=== PATIENT | male | born 1945 | race Caucasian/White ===

== ENCOUNTER 2017-01-21 22:02 | Emergency (ER) | payer MEDICARE ==
[2017-01-21 22:46] LABS: BASOPHILS 0.1 % (0.0-2.0); EOSINOPHILS 1.4 % (0-7); HEMOGLOBIN 14.3 g/dL (13.5-17.5); IMMATURE GRANULOCYTES 0.2 % (0-5); LYMPHOCYTES 35.7 % (15-50); MCH 27.7 pg (26.0-34.0); MCHC 32.5 g/dL (31.0-37.0); MCV 85.1 fL (80.0-100.0); MEAN PLATELET VOLUME 11.1 fL (7.4-10.4); MONOCYTES 7.4 % (2-11); NEUTROPHILS 55.2 % (40-80); PLATELET COUNT 160 10x3/uL (130-400); RBC 5.17 10x6/uL (4.20-6.10); RDW 13.5 % (11.5-14.5); WBC 12.8 10x3/uL (4.8-10.8)
[2017-01-21 23:00] LABS: ALBUMIN 3.5 g/dL (3.4-5.0); ANION GAP 12.5 mmol/L (8-16); BILIRUBIN - TOTAL 0.76 mg/dL (0.2-1.3); CALCIUM 8.6 mg/dL (8.5-10.1); CARBON DIOXIDE 28.8 mmol/L (21.0-32.0); CREATININE - SERUM 1.5 mg/dL (0.6-1.3); POTASSIUM - SERUM 4.3 mmol/L (3.5-5.1); PROTEIN - SERUM 6.3 g/dL (6.4-8.2)
[2017-01-21 23:16] LABS: D-DIMER-QUANTITATIVE < 0.27 ug/mLFEU (0.20-0.54)
[2017-01-21 23:28] LABS: INR 2.41 (0.85-1.17); PROTIME 26.3 SECONDS (11.6-15.0)
[2017-01-21 23:30] LABS: APTT 34.3 SECONDS (22.8-39.4)
== END 2017-01-22 00:52 | disposition home or self-care (01) ==
LOC: D.ER 22:02
PROVIDERS: Family Medicine
DX: M71.22 Synovial cyst of popliteal space [Baker], left knee (principal); I10 Essential (primary) hypertension; E11.9 Type 2 diabetes mellitus without complications

== ENCOUNTER → 2017-03-05 11:15 | Outpatient (CLI) | payer MEDICARE | END | disposition home or self-care (01) | LOC: D.LAB 11:15 | PROVIDERS: Orthopaedic Surgery | DX: E11.9 Type 2 diabetes mellitus without complications (principal) ==

== ENCOUNTER 2017-08-14 08:30 | Inpatient (IN) | payer MEDICARE ==
[2017-08-21] MEDS ORDERED: LOSARTAN POTASS25 MG PO (12:03)
[2017-08-21] MEDS ORDERED: COUMADIN10 MG PO (12:03)
[2017-08-21] MEDS ORDERED: LOVASTATIN10 MG PO (12:04)
[2017-08-21] MEDS ORDERED: ZYRTEC10 MG PO (12:04)
[2017-08-21] MEDS ORDERED: PRANDIN2 MG PO (12:05)
[2017-08-21] MEDS ORDERED: PROSCAR5 MG PO (12:05)
[2017-08-21] MEDS ORDERED: TRESIBA FL100 UNIT/1 SC (12:07)
[2017-08-22 13:13] LABS: BASOPHILS 0.2 % (0-2); EOSINOPHILS 1.8 % (0-7); HEMATOCRIT 47.6 % (42.0-54.0); HEMOGLOBIN 16.2 g/dL (13.5-17.5); IMMATURE GRANULOCYTES 0.2 % (0-5); LYMPHOCYTES 51.4 % (15-50); MCH 28.9 pg (26.0-34.0); MCV 84.8 fL (80.0-100.0); MEAN PLATELET VOLUME 10.4 fL (7.4-10.4); NEUTROPHILS 41.4 % (40-80); PLATELET COUNT 160 10x3/uL (130-400); RBC 5.61 10x6/uL (4.20-6.10); RDW 13.3 % (11.5-14.5); WBC 12.9 10x3/uL (4.8-10.8)
[2017-08-22 13:20] LABS: ANION GAP 13.4 mmol/L (8-16); CALCIUM 8.8 mg/dL (8.5-10.1); CARBON DIOXIDE 24.9 mmol/L (21.0-32.0); CREATININE - SERUM 1.1 mg/dL (0.6-1.3); POTASSIUM - SERUM 4.3 mmol/L (3.5-5.1)
[2017-08-22 13:22] LABS: APTT 38.9 SECONDS (22.8-39.4); INR 2.68 (0.85-1.17); PROTIME 28.7 SECONDS (11.6-15.0)
[2017-08-22 14:03] LABS: APPEARANCE CLEAR (CLEAR); BILIRUBIN NEGATIVE (NEGATIVE); COLOR YELLOW (YELLOW); GLUCOSE NEGATIVE (NEGATIVE); KETONE NEGATIVE (NEGATIVE); NITRITE NEGATIVE (NEGATIVE); PROTEIN NEGATIVE (NEGATIVE); SPECIFIC GRAVITY 1.015 (1.005-1.020); UROBILINOGEN NORMAL (NORMAL)
--- NOTE | 2017-08-23 13:25 | NUR ---
PATIENT RECEIVED TO FLOOR FROM [facility] VIA WHEELCHAIR. ORIENTED TO ROOM. DENIES NEEDS. CALL LIGHT IN REACH. DENIES NEEDS.
[2017-08-23] MEDS ORDERED: COUMADIN5 MG PO (13:28)
[2017-08-23 14:21] VITALS: BP 124/72; BMI 34.5
--- NOTE | 2017-08-23 14:30 | NUR ---
22 GAUGE IV SITED TO RIGHT FOREARM X2 ATTEMPTS. FLUSHES EASY WITH BLOOD RETURN PRESENT. SECURED WITH TAPE AND TEGADERM. WELL TOLERATED.
[2017-08-23 16:05] LABS: HEMATOCRIT 48.3 % (42.0-54.0); HEMOGLOBIN 16.2 g/dL (13.5-17.5); MCH 28.9 pg (26.0-34.0); MCHC 33.5 g/dL (31.0-37.0); MCV 86.1 fL (80.0-100.0); MEAN PLATELET VOLUME 10.7 fL (7.4-10.4); RBC 5.61 10x6/uL (4.20-6.10); RDW 13.4 % (11.5-14.5); WBC 13.6 10x3/uL (4.8-10.8)
[2017-08-23 16:19] LABS: APTT 45.6 SECONDS (22.8-39.4); INR 3.05 (0.85-1.17); PROTIME 31.8 SECONDS (11.6-15.0)
--- NOTE | 2017-08-23 16:57 | NUR ---
SITTING UP IN CHAIR ALERT. NO SIGNS OF DISTRESS NOTED. ACCU CHECK 241. INSULIN PER SLIDING SCALE. HEPARIN DRIP INITIATED PER ORDER. VERIFIED WITH CATHIE GARCIA. DENIES NEEDS. CALL LIGHT IN REACH.
[2017-08-23 20:00] VITALS: BP 148/76
[2017-08-24] VITALS: BP 136/66
--- NOTE | 2017-08-24 00:13 | NUR ---
30 MINUTE HOLD ON HEPARIN DRIP COMPLETE, RESTARTED AT 12ML/HR.
[2017-08-24 04:00] VITALS: BP 128/61
[2017-08-24 05:51] LABS: HEMATOCRIT 46.6 % (42.0-54.0); HEMOGLOBIN 15.6 g/dL (13.5-17.5); MCH 28.3 pg (26.0-34.0); MCHC 33.5 g/dL (31.0-37.0); MCV 84.6 fL (80.0-100.0); MEAN PLATELET VOLUME 10.7 fL (7.4-10.4); PLATELET COUNT 149 10x3/uL (130-400); RBC 5.51 10x6/uL (4.20-6.10); RDW 13.3 % (11.5-14.5); WBC 12.2 10x3/uL (4.8-10.8)
[2017-08-24 06:23] LABS: HEMOGLOBIN A1C 7.6 % (4.8-6.0)
[2017-08-24 06:47] LABS: ALBUMIN 3.5 g/dL (3.4-5.0); ANION GAP 14.6 mmol/L (8-16); BILIRUBIN - TOTAL 0.67 mg/dL (0.2-1.3); CALCIUM 8.7 mg/dL (8.5-10.1); CARBON DIOXIDE 25.4 mmol/L (21.0-32.0); CREATININE - SERUM 1.2 mg/dL (0.6-1.3); PROTEIN - SERUM 6.1 g/dL (6.4-8.2)
[2017-08-24 06:48] LABS: BASOPHILS 1 % (0-2); EOSINOPHILS 2 % (0-7); LYMPHOCYTES 60 % (15-50); MONOCYTES 1 % (2-11); NEUTROPHILS 36 % (40-80); PLATELET ESTIMATE NORMAL
--- NOTE | 2017-08-24 06:56 | NUR ---
DELAYED HEPARIN FOR 30 MINUTES PER HEPARIN PROTOCOL.
--- NOTE | 2017-08-24 07:15 | NUR ---
PATIENT RECEIVED UP AMBULATING IN ROOM. NO SIGNS OF DISTRESS NOTED. DENIES NEEDS. SIDE RAILS UP X2. BED IN LOW POSITION. CALL LIGHT IN REACH.
[2017-08-24 08:20] VITALS: BP 116/73
--- NOTE | 2017-08-24 08:30 | NUR ---
PATIENT AMBULATING IN ROOM WITHOUT ASSIST. DENIES NEEDS. WILL CONTINUE TO MONITOR.
--- NOTE | 2017-08-24 10:18 | NUR ---
UP AMBULATING IN HALLWAY WITHOUT ASSIST. NO SIGNS OF DISTRESS NOTED.
--- NOTE | 2017-08-24 11:06 | NUR ---
SITTING UP IN CHAIR ALERT. ACCU CHECK 172. INSULIN PER SLIDING SCALE. AT BEDSIDE. DENIES NEEDS. CALL LIGHT IN REACH.
--- NOTE | 2017-08-24 14:00 | NUR ---
PTT RESULTED. NO CHANGE TO HEPARIN DRIP RATE PER PROTOCOL. AM PTT ORDERED FOR 08/25/17
--- NOTE | 2017-08-24 15:00 | NUR ---
PATIENT UP AMBULATING IN HALLWAY WITHOUT ASSIST. NO SIGNS OF DISTRESS NOTED. DENIES NEEDS.
[2017-08-24 16:01] VITALS: BP 103/62
--- NOTE | 2017-08-24 16:35 | NUR ---
ALERT IN BED. ACCU CHECK 184. INSULIN PER SLIDING SCALE. DENIES NEEDS. SIDE RAILS UP X2. BED IN LOW POSITION. CALL LIGHT IN REACH.
--- NOTE | 2017-08-24 19:15 | NUR ---
RECEIVED CARE FROM DAY NURSE. PT IN HIGH FOWLERS POSTION. REPORTS NO NEEDS. CALL LIGHT AT SIDE. IV INFUSING TO PATENT RIGHT FA.
[2017-08-24 20:00] VITALS: BP 134/68
[2017-08-25] VITALS (7 sets, daily range): BP systolic 111–136; BP diastolic 57–79
--- NOTE | 2017-08-25 00:14 | NUR ---
ASSESSED, PT IS ASLEEP WITH BIPAP IN PLACE AND GOOD RESPIRATIONS. NO DISTRESS NOTED. ROOM IS COOL, THE BED IS LOW, RAILS UP X'S 2 WITH THE CALL LIGHT AT HAND.
--- NOTE | 2017-08-25 01:31 | NUR ---
PT LYING IN BED WITH EYES CLOSED. RESP EVEN AND UNLABORED. HOME C-PAP IN USE. CALL LIGHT AT SIDE. WILL CONTINUE TO MONITOR.
[2017-08-25 04:49] LABS: BASOPHILS 0.1 % (0-2); EOSINOPHILS 3.2 % (0-7); HEMATOCRIT 43.7 % (42.0-54.0); HEMOGLOBIN 14.7 g/dL (13.5-17.5); IMMATURE GRANULOCYTES 0.1 % (0-5); LYMPHOCYTES 55.7 % (15-50); MCH 28.3 pg (26.0-34.0); MCHC 33.6 g/dL (31.0-37.0); MCV 84.2 fL (80.0-100.0); MEAN PLATELET VOLUME 10.5 fL (7.4-10.4); MONOCYTES 4.8 % (2-11); NEUTROPHILS 36.1 % (40-80); PLATELET COUNT 136 10x3/uL (130-400); RBC 5.19 10x6/uL (4.20-6.10); RDW 13.1 % (11.5-14.5); WBC 10.7 10x3/uL (4.8-10.8)
[2017-08-25 05:09] LABS: ALBUMIN 3.3 g/dL (3.4-5.0); ANION GAP 9.2 mmol/L (8-16); BILIRUBIN - TOTAL 0.8 mg/dL (0.2-1.3); CALCIUM 8.9 mg/dL (8.5-10.1); CARBON DIOXIDE 26.4 mmol/L (21.0-32.0); CREATININE - SERUM 1.2 mg/dL (0.6-1.3); POTASSIUM - SERUM 3.6 mmol/L (3.5-5.1); PROTEIN - SERUM 5.8 g/dL (6.4-8.2)
--- NOTE | 2017-08-25 12:40 | NUR ---
PATIENT SITTING UP IN CHAIR EATING AT THIS TIME. NO COMPLAINTS OR SIGNS OF DISTRESS. IV INTACT. CALL LIGHT WITHIN REACH.
[2017-08-26 00:28] LABS: HEMATOCRIT 43.9 % (42.0-54.0); HEMOGLOBIN 14.9 g/dL (13.5-17.5); MCH 28.7 pg (26.0-34.0); MCHC 33.9 g/dL (31.0-37.0); MCV 84.6 fL (80.0-100.0); MEAN PLATELET VOLUME 10.5 fL (7.4-10.4); RBC 5.19 10x6/uL (4.20-6.10); RDW 13.2 % (11.5-14.5)
--- NOTE | 2017-08-26 01:46 | NUR ---
PATIENT RESTING IN BED WITH EYES CLOSED AND NO VISIBLE SIGNS OF DISTRESS. BED IN LOWEST POSITION AND CALL LIGHT WITHIN REACH.
--- NOTE | 2017-08-26 03:42 | NUR ---
RESTING QUITLY WITH C-PAP IN PLACE. IV INFUSING PER ORDER. RESP EVEN AND UNLABORED. CALL LIGHT AT SIDE.
[2017-08-26 04:00] VITALS: BP 140/65
--- NOTE | 2017-08-26 07:30 | NUR ---
RECIEVED PT DURING WALKING ROUNDS. PT RESTING IN CHAIR WITH NO COMPLAINTS OF PAIN OR DISCOMFORT AT THIS TIME. ASSESSMENT DONE PER FLOWSHEET. BED IN LOW POSITION AND CALL LIGHT WITHIN REACH. WILL CONTINUE TO MONITOR.
[2017-08-26 07:33] LABS: BASOPHILS 0.2 % (0-2); EOSINOPHILS 2.9 % (0-7); HEMATOCRIT 46.4 % (42.0-54.0); HEMOGLOBIN 15.8 g/dL (13.5-17.5); IMMATURE GRANULOCYTES 0.3 % (0-5); LYMPHOCYTES 56.7 % (15-50); MCH 28.8 pg (26.0-34.0); MCHC 34.1 g/dL (31.0-37.0); MCV 84.5 fL (80.0-100.0); MEAN PLATELET VOLUME 10.8 fL (7.4-10.4); MONOCYTES 4.3 % (2-11); NEUTROPHILS 35.6 % (40-80); PLATELET COUNT 155 10x3/uL (130-400); RBC 5.49 10x6/uL (4.20-6.10); RDW 13.4 % (11.5-14.5); WBC 11.2 10x3/uL (4.8-10.8)
[2017-08-26 08:01] LABS: ALBUMIN 3.5 g/dL (3.4-5.0); ANION GAP 14.8 mmol/L (8-16); BILIRUBIN - TOTAL 0.87 mg/dL (0.2-1.3); CALCIUM 8.6 mg/dL (8.5-10.1); CARBON DIOXIDE 25.4 mmol/L (21.0-32.0); CREATININE - SERUM 1.2 mg/dL (0.6-1.3); POTASSIUM - SERUM 4.2 mmol/L (3.5-5.1); PROTEIN - SERUM 6.3 g/dL (6.4-8.2)
--- NOTE | 2017-08-26 08:50 | NUR ---
HEPARIN DRIP ADJUSTED PER PROTOCOL. DOCUMANETED IN FLOWSHEET. BED IN LOW POSITION AND CALL LIGHT WITHIN REACH. WILL CONTINUE TO MONITOR.
[2017-08-26 09:48] VITALS: BP 128/69
[2017-08-26 10:52] LABS: INR 1.28 (0.85-1.17); PROTIME 15.8 SECONDS (11.6-15.0)
[2017-08-26 12:05] VITALS: BP 124/72
--- NOTE | 2017-08-26 15:42 | NUR ---
HEPARIN DRIP ADJUSTED PER PROTOCOL. WITNESSED BY NEEMA HERNANDEZ RN.
--- NOTE | 2017-08-26 19:15 | NUR ---
RECEIVED CARE FROM DAY NURSE. PT IN HIGH FOWLERS POSITION. REPORTS NO NEEDS. CALL LIGHT AT SIDE. IV INFUSING HEPARIN PER ORDER.
[2017-08-26 21:22] VITALS: BP 107/52
[2017-08-27] VITALS: BP 104/63
--- NOTE | 2017-08-27 00:42 | NUR ---
PATIENT RESTING IN BED WITH NO VISIBLE SIGNS OF DISTRESS. BED IN LOWEST POSITION AND CALL LIGHT WITHIN REACH.
[2017-08-27 04:00] VITALS: BP 113/64
[2017-08-27 05:26] LABS: BASOPHILS 0.2 % (0-2); EOSINOPHILS 2.6 % (0-7); HEMOGLOBIN 15.8 g/dL (13.5-17.5); IMMATURE GRANULOCYTES 0.2 % (0-5); LYMPHOCYTES 53.1 % (15-50); MCH 28.3 pg (26.0-34.0); MCHC 32.9 g/dL (31.0-37.0); MONOCYTES 5.3 % (2-11); NEUTROPHILS 38.6 % (40-80); PLATELET COUNT 155 10x3/uL (130-400); RBC 5.58 10x6/uL (4.20-6.10); RDW 13.5 % (11.5-14.5); WBC 12.4 10x3/uL (4.8-10.8)
[2017-08-27 05:54] LABS: ALBUMIN 3.7 g/dL (3.4-5.0); ANION GAP 13.8 mmol/L (8-16); BILIRUBIN - TOTAL 1.07 mg/dL (0.2-1.3); CALCIUM 9.1 mg/dL (8.5-10.1); CARBON DIOXIDE 29.6 mmol/L (21.0-32.0); CREATININE - SERUM 1.2 mg/dL (0.6-1.3); POTASSIUM - SERUM 4.4 mmol/L (3.5-5.1); PROTEIN - SERUM 6.6 g/dL (6.4-8.2)
--- NOTE | 2017-08-27 05:59 | NUR ---
HEPARIN TURNED OFF FOR SURGERY.
--- NOTE | 2017-08-27 07:30 | NUR ---
RECIEVED PT DURING WALKING ROUNDS. PT RESTING IN BED WITH NO COMPLAINTS OF PAIN OR DISCOMFORT AT THIS TIME. ASSESSMENT DONE PER FLOWSHEET. BED IN LOW POSITION AND CALL LIGHT WITHIN REACH. WILL CONTINUE TO MONITOR.
--- NOTE | 2017-08-27 07:48 | NUR ---
PT TAKEN TO SURGERY AT THIS TIME.
[2017-08-27 08:21] VITALS: BP 111/62
--- NOTE | 2017-08-27 09:07 | NUR ---
CASE DID NOT START SCHEDULED TIME DUE TO SURGEON LATE ARRIVAL TO HOSPITAL. PRECEDING CASE STARTED 30 MINUTES LATE.
[2017-08-27 09:18] LABS: INR 1.13 (0.85-1.17); PROTIME 14.3 SECONDS (11.6-15.0)
--- NOTE | 2017-08-27 10:55 | NUR ---
ANESTHESIA PUT BLOCK IN PT AFTER PROCEDURE
--- NOTE | 2017-08-27 11:35 | NUR ---
RECIEVED PT BACK FROM SURGERY. POST-OP VITALS STARTED AT THIS TIME.
[2017-08-27 11:36] VITALS: BP 126/68
--- NOTE | 2017-08-27 12:15 | NUR ---
HEPARIN PROTOCOL STARTED BACK TO LEFT FOREARM IV. IV SITED BY CATHIE COUCH. RATE AT 12. STAT PTT ORDERED.
--- NOTE | 2017-08-27 12:54 | OP ---
PATIENT NAME: JORGE CHUNG JR MEDICAL RECORD: [id number] :46 LOCATION:[id number] ADMISSION DATE:08/23/17 SURGEON: SELENE HOLLIDAY MD DATE OF OPERATION: 08/27/2017 PREOPERATIVE DIAGNOSES: 1. Left knee arthritis, severe. 2. 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 3. History of chronic blood clots on Coumadin. POSTOPERATIVE DIAGNOSES: 1. Left knee arthritis, severe. 2. 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 3. History of chronic blood clots on Coumadin. PROCEDURE: Left total knee arthroplasty using David navigation due to the above deformity. OPERATIVE SUMMARY IN DETAIL: After obtaining the appropriate preoperative orthopedic surgery consent as well as anesthetic consultation, evaluation and clearance, the patient was brought to the operating room and placed on the operating table in supine position. After general laryngeal mask was administered, tourniquet was placed about the proximal aspect of the left lower extremity. Left lower extremity was then prepped and draped in routine sterile fashion. Leg was elevated, exsanguinated, and tourniquet was inflated to 350 mmHg. Routine midline incision was taken down. Paramedian arthrotomy was performed. Patella was everted, distal femur was exposed. At this point, the femoral and tibial arrays were put in standard fashion and then the knee was taken through range of motion to found the hip center, medial and lateral condyles, knee center, and knee axial alignment as well as the tibial spines, medial and lateral tibial plateaus, and the medial and lateral malleoli. After registration was complete, array guided cut block was placed on the distal femur and the appropriate adjustments were made to do a mechanical axis of 0 with approximately 8 mm resection using the [employer] navigation system. Having completed this, attention was turned to the tibia and again the tibial cutting guide was mounted with an array and after the appropriate adjustments were made for mechanical axis of 0 and a resection of approximately 7 mm, the tibial cut was made. At this point, the gap primary class teacher was then put into place to be sure that there was appropriate room and also to be sure that there was appropriate balancing. Next, sizes were taken. Distal femoral chamfer cuts were created. Trials were put in. There was a 6 distal femur, 9 polyethylene trial insert, and a 6 trial tibial baseplate. Final corrections were made and the knee was taken through a range of motion with the [employer] navigation system. Final distal femoral and proximal tibial preparations were made. The articular surface of the patella was resected for patellar resurfacing. Final patellar resurfacing holes were completed. At this point, the knee was irrigated in copious lavage fashion. Gap balancing was done in both flexion and extension. The final components were cemented into place. All excess cement was removed. The knee was taken through a range of motion and found to be stable in all planes. Minden pins for the arrays and the arrays were taken off. Wound was again copiously irrigated. The paramedian arthrotomy was closed with #2 Ethibond followed by #1 Vicryl, 2-0 Vicryl and skin silvino. Sterile dressings were applied. Tourniquet was deflated. The patient was awakened, taken to recovery in stable condition. All final needle and sponge counts were correct. OPERATIVE REPORT [id number] JORGE CHUNG TRANSINT:[id number] Voice Confirmation ID: [id number] DOCUMENT ID: [id number] SELENE HOLLIDAY MD at 1254 CC: [id number] DICTATION DATE: 08/27/17 1032 OFFSET PLATE PREPARATION SUPERVISOR: 08/27/17 1223 [facility] [address] [place] [address]
--- NOTE | 2017-08-27 13:50 | NUR ---
SPOKE WITH ROSEY ATWOOD AT THIS TIME, WAS INSTRUCTED TO START HEPARIN PROTOCOL OVER AT 1300 UNITS/HR. RATE CHANGED AT THIS TIME. PTT LAB ORDERED PER PROTOCOL.
[2017-08-27 20:00] VITALS: BP 126/61
[2017-08-28] VITALS: BP 121/59
--- NOTE | 2017-08-28 01:27 | NUR ---
RN NOTE: PT RESTING IN SEMI GIBSON'S POSITION WITH EYES CLOSED AND EASY RESPIRATIONS. IV IN RIGHT FA PATENT WITH 1/2 NS INFUSING AT 100 ML / HR. O2 IN USE VIA NC AT 2L. DRESSING ON LEFT KNEE CLEAN AND DRY. WILL CONTINUE TO MONITOR FOR NEEDS. CALL LIGHT WITHIN REACH.
[2017-08-28 04:00] VITALS: BP 124/57
[2017-08-28 05:44] LABS: BASOPHILS 0.1 % (0-2); EOSINOPHILS 0.3 % (0-7); HEMATOCRIT 41.9 % (42.0-54.0); HEMOGLOBIN 13.8 g/dL (13.5-17.5); IMMATURE GRANULOCYTES 0.2 % (0-5); LYMPHOCYTES 36.4 % (15-50); MCH 28.5 pg (26.0-34.0); MCHC 32.9 g/dL (31.0-37.0); MCV 86.6 fL (80.0-100.0); MEAN PLATELET VOLUME 11.2 fL (7.4-10.4); MONOCYTES 8.6 % (2-11); NEUTROPHILS 54.4 % (40-80); PLATELET COUNT 143 10x3/uL (130-400); RBC 4.84 10x6/uL (4.20-6.10); RDW 13.6 % (11.5-14.5)
[2017-08-28 05:45] LABS: INR 1.19 (0.85-1.17)
[2017-08-28 05:51] LABS: ALBUMIN 3.3 g/dL (3.4-5.0); ANION GAP 14.6 mmol/L (8-16); BILIRUBIN - TOTAL 1.5 mg/dL (0.2-1.3); CALCIUM 8.2 mg/dL (8.5-10.1); CARBON DIOXIDE 25.7 mmol/L (21.0-32.0); CREATININE - SERUM 1.3 mg/dL (0.6-1.3); POTASSIUM - SERUM 4.3 mmol/L (3.5-5.1)
[2017-08-28 05:59] LABS: WBC 16.5 10x3/uL (4.8-10.8)
--- NOTE | 2017-08-28 07:42 | NUR ---
AWAKE AND ALERT. ORIENTED X3. NO C/O AT THIS TIME. LUNGS ARE CLEAR BILATERALLY, NO COUGH NOTED. SLIGHTLY DIMINISHED IN LOWER LOBES. SKIN IS INTACT WITHOUT REDNESS EXCEPT INCISION TO LEFT KNEE WHICH HAS A DRY INTACT DRESSING IN PLACE. ON CPM AT THIS TIME. IV TO RIGHT AND LEFT FOREARMS PATENT WITHOUT REDNESS AT INSERTION SITE. DENIES NEEDS.
--- NOTE | 2017-08-28 08:00 | NUR ---
OF CPM NOW.
[2017-08-28 08:30] VITALS: BP 137/54
--- NOTE | 2017-08-28 10:22 | NUR ---
UP IN CHAIR AT BEDSIDE PER PT.
--- NOTE | 2017-08-28 11:08 | NUR ---
Patient Name: JORGE CHUNG Admission Status: Elective Accout number: [id number] Admission Date: 08-23-2017 : 1945 Admission Diagnosis:UNILATERAL PRIMARY OSTEOARTHRITIS, LEFT KNEE Attending: SELENE HOLLIDAY Current LOS: 5 Anticipated DC Date: Planned Disposition: Home with Home Health Primary Insurance: [facility] Discharge Planning Comments: CM met with patient and (Isrrael) to assess discharge planning needs. Patient plans to discharge home and do PT with [facility] at home. He states that his does not drive so his Brother will be the one to drive home. Patient uses a CPAP machine with [facility]. Patient will need a walker and a CPM prior to discharge. CM will assist with that along with setting the patient up with HH and PT. CM will continue to follow and assist with discharge planning needs. PCP: Lillian Christensen- [phone] Mill Feeder: Yane Kern * Is the patient Alert and Oriented? Yes 0 * How many steps to enter\exit or inside your home? 0 0 * PCP LILLIAN 0 * Pharmacy [facility] 0 * Preadmission Environment Home with Family 0 * ADLs Independent 0 * Equipment CPAP 0 * List name and contact numbers for known caregivers / representatives who currently or will assist patient after discharge: ISRRAEL () [phone] 0 * Community resources currently utilized None 0 * Additional services required to return to the preadmission environment? Yes 0 * Can the patient safely return to the preadmission environment? Yes 0 * Has this patient been hospitalized within the prior 30 days at any hospital? No 0 Grand Total: 0
[2017-08-28 11:39] VITALS: BP 121/64
--- NOTE | 2017-08-28 12:00 | NUR ---
FSBS 293. GIVEN 6 UNITS HUMALOG SUBQ PER SS. STILL UP IN CHAIR AT BEDSIDE.
--- NOTE | 2017-08-28 12:51 | NUR ---
REQUESTED AND GIVNE ONE PERCOCET PO FOR C/O LEFT KNEE PAIN LEVEL 6. WILL MONITOR. ASSISTED TO BED PER STAFF.
[2017-08-28 15:07] VITALS: BP 126/76
--- NOTE | 2017-08-28 17:00 | NUR ---
FSBS 242. GIVEN 4 UNITS HUMALOG SUBQ PER SS. SUPPER SERVED INROOM.
--- NOTE | 2017-08-28 18:06 | NUR ---
UP TO BR WITH RW AND MIN ASSIST OF ONE. NO BM PUT PASSED FLATUS. NO CHANGES NOTED. DENIES NEEDS.
[2017-08-28 20:00] VITALS: BP 132/60
--- NOTE | 2017-08-28 23:11 | NUR ---
PATIENT IS RESTING WELL IN BED, CPM TAKEN OFF REQUESTED BY PATIENT. CALL LIGHT IN REACH.
[2017-08-29] VITALS: BP 136/64
[2017-08-29 04:00] VITALS: BP 126/58
[2017-08-29 05:40] LABS: BASOPHILS 0.1 % (0-2); EOSINOPHILS 0.5 % (0-7); IMMATURE GRANULOCYTES 0.3 % (0-5); LYMPHOCYTES 40.5 % (15-50); MCH 28.8 pg (26.0-34.0); MCHC 33.5 g/dL (31.0-37.0); MCV 85.9 fL (80.0-100.0); MEAN PLATELET VOLUME 10.2 fL (7.4-10.4); MONOCYTES 7.7 % (2-11); NEUTROPHILS 50.9 % (40-80); PLATELET COUNT 144 10x3/uL (130-400); RDW 13.3 % (11.5-14.5); WBC 14.9 10x3/uL (4.8-10.8)
[2017-08-29 05:44] LABS: HEMATOCRIT 32.2 % (42.0-54.0); HEMOGLOBIN 10.8 g/dL (13.5-17.5); RBC 3.75 10x6/uL (4.20-6.10)
[2017-08-29 05:50] LABS: INR 1.53 (0.85-1.17); PROTIME 18.3 SECONDS (11.6-15.0)
[2017-08-29 05:57] LABS: ALBUMIN 2.8 g/dL (3.4-5.0); BILIRUBIN - TOTAL 1.2 mg/dL (0.2-1.3); CALCIUM 8.1 mg/dL (8.5-10.1); CREATININE - SERUM 1.3 mg/dL (0.6-1.3); PROTEIN - SERUM 5.7 g/dL (6.4-8.2)
--- NOTE | 2017-08-29 07:37 | NUR ---
AWAKE AND ALERT. ORIENTED X3. NO C/O AT THIS TIME. LUNGS ARE CLEAR BILATERALLY, NO COUGH NOTED. SKIN IS INTACT WITHOUT REDNESS EXCEPT INCISION TO LEFT KNEE WHICH HAS A DRY INTACT DRESSING IN PLACE. ON CPM AT THIS TIME. IV TO RIGHT FOREARM PATENT AND LEFT FOREARM PATNET WITHOUT REDNESS AT INSERTION SITE. CLEAR YELLOW URINE NOTED IN URINAL. DENIES NEEDS.
[2017-08-29 08:11] VITALS: BP 146/64
--- NOTE | 2017-08-29 10:00 | NUR ---
REQUESTED AND GIVNE ONE PERCOCET PO FOR C/O LEFT KNEE PAIN LEVEL 6. WILL MONITOR.
--- NOTE | 2017-08-29 12:00 | NUR ---
FSBS 319. GIVEN 12 UNITS HUMALOG SUBQ PER SS. LUNCH SERVED IN ROOM. UP TO BR WITH PT USING RW. NO BM JUST FLATUS.
[2017-08-29 12:35] VITALS: BP 129/58
--- NOTE | 2017-08-29 17:00 | NUR ---
FSBS 299. GIVEN 6 UNITS HUMALOG SUBQ PER SS.
[2017-08-29 17:27] VITALS: BP 130/60
--- NOTE | 2017-08-29 17:59 | NUR ---
REQUESTED AND GIVEN ONE PERCOCET PO FOR PAIN MANAGEMENT PRIOR TO CPM. PLACED AT THIS TIME.
--- NOTE | 2017-08-29 18:19 | NUR ---
ATE ALL OF SUPPER. NO CHANGES NOTED. DENIES NEEDS.
[2017-08-29 20:00] VITALS: BP 132/56
[2017-08-30] VITALS: BP 137/57
[2017-08-30 04:00] VITALS: BP 142/55
[2017-08-30 05:26] LABS: BASOPHILS 0.1 % (0-2); EOSINOPHILS 1.1 % (0-7); HEMATOCRIT 28.1 % (42.0-54.0); HEMOGLOBIN 9.4 g/dL (13.5-17.5); IMMATURE GRANULOCYTES 0.1 % (0-5); LYMPHOCYTES 45.2 % (15-50); MCH 28.7 pg (26.0-34.0); MCHC 33.5 g/dL (31.0-37.0); MCV 85.7 fL (80.0-100.0); MEAN PLATELET VOLUME 10.1 fL (7.4-10.4); NEUTROPHILS 46.5 % (40-80); PLATELET COUNT 151 10x3/uL (130-400); RBC 3.28 10x6/uL (4.20-6.10); RDW 13.4 % (11.5-14.5); WBC 13.6 10x3/uL (4.8-10.8)
[2017-08-30 05:47] LABS: INR 1.4 (0.85-1.17)
[2017-08-30 05:48] LABS: ALBUMIN 2.6 g/dL (3.4-5.0); ANION GAP 11.6 mmol/L (8-16); APTT 72.8 SECONDS (22.8-39.4); BILIRUBIN - TOTAL 0.9 mg/dL (0.2-1.3); CALCIUM 8.3 mg/dL (8.5-10.1); CREATININE - SERUM 1.3 mg/dL (0.6-1.3); POTASSIUM - SERUM 3.6 mmol/L (3.5-5.1)
--- NOTE | 2017-08-30 05:54 | NUR ---
RESTING IN BED WITH EYES CLOSED. NO S/S OF DISTRESS OBSERVED. IV TO RIGHT FOREARM WITH 1/2 NS RUNNING. POST LEFT YKR. CPAP IN PLACE AND FUNCTIONING PROPERLY. O2@2 LITERS PER N/C. RESP. EVEN AND UNLABORED.CALL LIGHT AND OVERBED TABLE IN REACH.
--- NOTE | 2017-08-30 07:15 | NUR ---
RECIEVED REPORT ON PATIENT, PATIENT IS ALERT AND ORIENTED AT THIS TIME. PATIENT IS ST ON MONITOR WITH A RATE OF 118. PATIENT HAS A R FA IV WITH 1/2 NS INFUSING AT 100ML/HR AND A L FA IV INFUSING WITH A HEPARIN DRIP AT 10ML/HR. PATIENT HAS L KNEE WRAPPED IN AN WILLIAM WRAP, AND IS ON CPM AT THIS TIME. SCD ON R LEG. PATIENT DENIES ANY NEEDS AT THIS TIME. WILL CONT TO MONITOR PATIENT. CPOC
[2017-08-30 08:55] VITALS: BP 134/65
--- NOTE | 2017-08-30 09:30 | NUR ---
MORNING MEDICATION GIVEN, PATIENT DENIES ANY NEEDS. BED LOW AND LOCKED. CPOC
[2017-08-30 11:29] VITALS: BP 116/46
--- NOTE | 2017-08-30 11:45 | NUR ---
PATIENT FSBS 252, 10 UNITS OF HUMALOG GIVEN. CPOC
--- NOTE | 2017-08-30 12:00 | NUR ---
PATIENT SITTING UP IN BED EATING LUNCH, DENIES ANY NEEDS AT THIS TIME. CPOC
--- NOTE | 2017-08-30 12:57 | NUR ---
NUTRITION F/U PT UP IN [place]RE[place] WITH PHYSICAL THERAPY. 100% INTAKE LUNCH. CONTINUES TO BE ASSESSED AT LOW NUTRITIONAL RISK. RD FOLLOWING
--- NOTE | 2017-08-30 12:57 | NUR ---
PATIENT AMBULATING [place] WITH PT. CPOC
--- NOTE | 2017-08-30 15:00 | NUR ---
PATIENT UP TO BATHROOM, HAVING BM. CALL LIGHT IN REACH. CPOC
--- NOTE | 2017-08-30 16:33 | NUR ---
Rehab Note- Acute Rehab Prescreen order received. The patient had a left TKA. He does not have an acute inpatient rehab diagnosis at this time. Plans to discharge home with . Will follow at this time. Thank you for this referral! Diamond Maldonado RN Clinical Liaison, [facility] Rehab
[2017-08-30 19:49] VITALS: BP 143/71
[2017-08-31] VITALS: BP 144/77
--- NOTE | 2017-08-31 01:27 | NUR ---
PT C/O BEING "COLD & SHAKY" HE SAID HIS BLOOD SUGAR MUST BE LOW. FSBS 131. GAVE OLGA CRACKERS WITH PEANUT BUTTER AND MILK. PT STATES HE FEELS BETTER. HE ALSO C/O LEFT KNEE PAIN 07/29, GAVE PERCOCET-10 1 TAB. NO OTHER NEEDS. WILL REASSESS AND CONTINUE TO MONITOR.
[2017-08-31 04:00] VITALS: BP 119/68
[2017-08-31 06:09] LABS: BASOPHILS 0.1 % (0-2); EOSINOPHILS 1.4 % (0-7); HEMATOCRIT 26.4 % (42.0-54.0); HEMOGLOBIN 8.7 g/dL (13.5-17.5); IMMATURE GRANULOCYTES 0.2 % (0-5); LYMPHOCYTES 49.3 % (15-50); MCH 28.4 pg (26.0-34.0); MCV 86.3 fL (80.0-100.0); MEAN PLATELET VOLUME 10.2 fL (7.4-10.4); MONOCYTES 6.9 % (2-11); NEUTROPHILS 42.1 % (40-80); RBC 3.06 10x6/uL (4.20-6.10); RDW 13.4 % (11.5-14.5); WBC 11.8 10x3/uL (4.8-10.8)
[2017-08-31 06:10] LABS: PLATELET COUNT 183 10x3/uL (130-400)
[2017-08-31 06:19] LABS: APTT 51.7 SECONDS (22.8-39.4); INR 1.27 (0.85-1.17); PROTIME 15.8 SECONDS (11.6-15.0)
[2017-08-31 06:32] LABS: ALBUMIN 2.4 g/dL (3.4-5.0); ANION GAP 10.6 mmol/L (8-16); BILIRUBIN - TOTAL 0.74 mg/dL (0.2-1.3); CALCIUM 8.6 mg/dL (8.5-10.1); CARBON DIOXIDE 27.9 mmol/L (21.0-32.0); CREATININE - SERUM 1.3 mg/dL (0.6-1.3); POTASSIUM - SERUM 3.5 mmol/L (3.5-5.1); PROTEIN - SERUM 6.1 g/dL (6.4-8.2)
--- NOTE | 2017-08-31 07:56 | NUR ---
AWAKE AND ALERT. ORIENTED X3. NO C/O AT THIS TIME. LUNGS ARE CLEAR BILATERALLY, OCCASSIONAL DRY COUGH NOTED. SKIN IS INTACT WITHOUT REDNESS EXCEPT INCISION TO LEFT KNEE, WHICH HAS A DRY INTACT DRESSING IN PLACE AND SOME WHAT LOOKS LIKE TAPE BLISTERS TO LEFT LEG ABOVE DRESSING AREA. SL TO RIGHT FOREARM AND IV TO LEFT WRIST PATENT WITHOUT REDNESS AT INSERTION SITE. DENIES NEEDS.
[2017-08-31 08:15] VITALS: BP 136/58
--- NOTE | 2017-08-31 10:00 | NUR ---
UP IN CHAIR AT BEDSIDE PER PT.
--- NOTE | 2017-08-31 12:15 | NUR ---
REQUESTED AND GIVNE ONE PERCOCET PO FOR C/O LEFT KNEE PAIN LEVEL 8. WILL MONITOR. REPORTS GOOD BM THIS AM.
[2017-08-31 12:33] VITALS: BP 126/53
[2017-08-31 16:17] VITALS: BP 123/50
--- NOTE | 2017-08-31 17:00 | NUR ---
FSBS 221. GIVEN 8 UNITS HUMALOG SUBQ FOR SAME. SUPPER SERVED IN ROOM. REQUESTED AND GIVNE ONE PERCOCET PO FOR C/O LFET KNEE PAIN LEVEL 7. WILL MONITOR.
--- NOTE | 2017-08-31 18:00 | NUR ---
UP TO BR WITH ONE PERSON MIN ASSIST. VOIDED WITHOUT DIFFICULTY. CPM TO LEFT KNEE AT THIS TIME. REPORTS PAIN IMPROVED. DENIES NEEDS. NO CHANGES NOTED.
[2017-08-31 20:00] VITALS: BP 130/62
[2017-09-01] VITALS: BP 130/58
[2017-09-01 00:51] LABS: HEMATOCRIT 26.7 % (42.0-54.0); HEMOGLOBIN 8.8 g/dL (13.5-17.5); MCH 28.2 pg (26.0-34.0); MCV 85.6 fL (80.0-100.0); MEAN PLATELET VOLUME 9.3 fL (7.4-10.4); RBC 3.12 10x6/uL (4.20-6.10); RDW 13.2 % (11.5-14.5); WBC 12.1 10x3/uL (4.8-10.8)
[2017-09-01 04:00] VITALS: BP 125/64
[2017-09-01 05:47] LABS: BASOPHILS 0.2 % (0-2); EOSINOPHILS 2.6 % (0-7); HEMATOCRIT 26.1 % (42.0-54.0); HEMOGLOBIN 8.5 g/dL (13.5-17.5); IMMATURE GRANULOCYTES 0.3 % (0-5); LYMPHOCYTES 53.6 % (15-50); MCH 27.9 pg (26.0-34.0); MCHC 32.6 g/dL (31.0-37.0); MCV 85.6 fL (80.0-100.0); MEAN PLATELET VOLUME 9.6 fL (7.4-10.4); MONOCYTES 7.1 % (2-11); NEUTROPHILS 36.2 % (40-80); PLATELET COUNT 214 10x3/uL (130-400); RBC 3.05 10x6/uL (4.20-6.10); RDW 13.2 % (11.5-14.5); WBC 11.7 10x3/uL (4.8-10.8)
[2017-09-01 06:06] LABS: INR 1.6 (0.85-1.17)
[2017-09-01 06:09] LABS: APTT 91.2 SECONDS (22.8-39.4)
[2017-09-01 06:17] LABS: ALBUMIN 2.5 g/dL (3.4-5.0); ANION GAP 10.6 mmol/L (8-16); BILIRUBIN - TOTAL 0.9 mg/dL (0.2-1.3); CALCIUM 8.8 mg/dL (8.5-10.1); CARBON DIOXIDE 28.2 mmol/L (21.0-32.0); CREATININE - SERUM 1.3 mg/dL (0.6-1.3); POTASSIUM - SERUM 3.8 mmol/L (3.5-5.1)
[2017-09-01 07:58] VITALS: BP 120/55
--- NOTE | 2017-09-01 08:00 | NUR ---
ASSESSMENT PER FLOW SHEET.ASSISTED UP TO BATHROOM AND TO CHAIR WITH WALKER.PT WITHOUT DISTRESS,BUT STATES PAIN 5/10 TO POSTERIOR THIGH. CPM OFF AT 0815. CALL LIGHT IN REACH
[2017-09-01 12:43] VITALS: BP 114/55
--- NOTE | 2017-09-01 15:15 | NUR ---
REHAB PRESCREEN: THE PATIENT HAS [employer] INSURANCE AND WILL NEED PRIOR AUTHORIZATION FOR APPROVAL FOR REHAB, WAITING ON THE RESULTS OF THAT APPROVAL BEFORE ABLE TO APROVE THE EVAL. WILL FOLLOW UP ON SUNDAY. THANK YOU AGAIN FOR THIS EVAL. GISSELL CHAUDHRY CLINICAL LIASION
[2017-09-01 15:49] VITALS: BP 144/54
--- NOTE | 2017-09-01 18:32 | NUR ---
REMAINS WITHOUT DISTRESS,WITHOUT CHANGE.CONT PLAN OF CARE
--- NOTE | 2017-09-01 18:38 | NUR ---
PT REFUSES CPM. HE STATES PT LEFT HIM UP TO LONG AND WILL NOT DO IT.
[2017-09-01 20:00] VITALS: BP 119/65
--- NOTE | 2017-09-01 20:00 | NUR ---
PT C/O LEFT KNEE PAIN 04/28. GAVE PERCOCET AND SCHEDULED MEDS. FSBS 211 - TREATED WITH S/S INSULIN GAVE SCHEDULED LANTUS. GAVE SNACK OF OLGA CRACKERS AND PEANUT BUTTER. ASSESSMENT COMPLETE PER FLOWSHEET.
--- NOTE | 2017-09-01 20:03 | NUR ---
LATE ENTRY- 1330 REHAB PRESCREENING RE-EVAL REQUESTED. PATIENT HAS A MEDICARE REPLACEMENT PROVIDER THEREFORE WILL NEED PREAUTH PRIOR TO EVALUATION. REHAB SCREENER TO FOLLOW UP ON SUNDAY.
[2017-09-02] VITALS: BP 122/69
[2017-09-02 04:00] VITALS: BP 135/59
[2017-09-02 05:25] LABS: BASOPHILS 0.1 % (0-2); EOSINOPHILS 2.3 % (0-7); HEMATOCRIT 28.4 % (42.0-54.0); HEMOGLOBIN 9.1 g/dL (13.5-17.5); IMMATURE GRANULOCYTES 0.6 % (0-5); LYMPHOCYTES 52.8 % (15-50); MCH 27.7 pg (26.0-34.0); MCV 86.3 fL (80.0-100.0); MEAN PLATELET VOLUME 9.2 fL (7.4-10.4); MONOCYTES 6.8 % (2-11); NEUTROPHILS 37.4 % (40-80); PLATELET COUNT 243 10x3/uL (130-400); RBC 3.29 10x6/uL (4.20-6.10); RDW 13.3 % (11.5-14.5); WBC 14.1 10x3/uL (4.8-10.8)
[2017-09-02 05:47] LABS: INR 1.66 (0.85-1.17); PROTIME 19.6 SECONDS (11.6-15.0)
[2017-09-02 05:49] LABS: APTT 117.7 SECONDS (22.8-39.4)
[2017-09-02 05:52] LABS: ALBUMIN 2.7 g/dL (3.4-5.0); ANION GAP 12.4 mmol/L (8-16); CALCIUM 9.3 mg/dL (8.5-10.1); CARBON DIOXIDE 27.7 mmol/L (21.0-32.0); CREATININE - SERUM 1.3 mg/dL (0.6-1.3); POTASSIUM - SERUM 4.1 mmol/L (3.5-5.1); PROTEIN - SERUM 6.5 g/dL (6.4-8.2)
[2017-09-02 08:30] VITALS: BP 129/67
--- NOTE | 2017-09-02 09:05 | NUR ---
REPORT RECEIVED FROM CATHIE GARCIA.
--- NOTE | 2017-09-02 11:30 | NUR ---
BLOOD SUGAR 223 SO COVERAGE REQUIRED. PERCOCET PO. CALL LIGHT IN REACH.
--- NOTE | 2017-09-02 12:55 | NUR ---
EATING LUNCH AT THIS TIME. NO DISTRESS NOTED. AT BEDSIDE. CALL LIGHT IN REACH.
--- NOTE | 2017-09-02 14:31 | NUR ---
HEPARIN DRIP CHANGED TO RIGHT FOREARM PER PATIENT'S REQUEST.
[2017-09-02 16:08] VITALS: BP 126/68
--- NOTE | 2017-09-02 16:30 | NUR ---
FAMILY IN ROOM. NO NEEDS VOICED AT THIS TIME.
--- NOTE | 2017-09-02 18:52 | NUR ---
CPM ON. PERCOCET AND PRANDIN PO. NO OTHER CHANGES IN INITIAL ASSESSMENT. CALL LIGHT IN REACH. WILL CONTINUE WITH PLAN OF CARE.
[2017-09-02 20:34] VITALS: BP 113/56
[2017-09-03] VITALS: BP 127/63
[2017-09-03 04:00] VITALS: BP 125/64
[2017-09-03 05:34] LABS: HEMOGLOBIN 9.9 g/dL (13.5-17.5); MCH 27.7 pg (26.0-34.0); MCHC 31.9 g/dL (31.0-37.0); MCV 86.8 fL (80.0-100.0); MEAN PLATELET VOLUME 9.1 fL (7.4-10.4); RBC 3.57 10x6/uL (4.20-6.10); RDW 13.5 % (11.5-14.5); WBC 14.4 10x3/uL (4.8-10.8)
[2017-09-03 06:56] LABS: INR 2.56 (0.85-1.17); PROTIME 27.6 SECONDS (11.6-15.0)
--- NOTE | 2017-09-03 07:49 | NUR ---
AWAKE AND ALERT. ORIENTED X3. NO C/O AT THIS TIME. LUNGS ARE CLEAR BILATERLALLY, NO COUGH NOTED. USED IS AT THIS TIME. SKIN IS INTACT WITHOUT REDNESS EXCEPT INCISION TO LEFT KNEE WHICH HAS A DRY INTACT DRESSING IN PLACE. SL TO LEFT HAND PATENT IV TO RIGHT FOREARM PATENT WITHOUT REDNESS AT ISNERTION SITE. DENIES NEEDS. CPM OFF AT THIS TIME.
[2017-09-03 08:15] VITALS: BP 128/68
[2017-09-03] MEDS ORDERED: PERCOCET 10/3251 TA1 PO (08:35)
--- NOTE | 2017-09-03 09:45 | NUR ---
REQUESTED AND GIVEN ONE PERCOCET PO FOR C/O LEFT KNEE PAIN LEVEL 8. WILL MONITOR.
[2017-09-03 10:13] LABS: ALBUMIN 2.7 g/dL (3.4-5.0); ANION GAP 11.9 mmol/L (8-16); BILIRUBIN - TOTAL 0.93 mg/dL (0.2-1.3); CALCIUM 9.3 mg/dL (8.5-10.1); CARBON DIOXIDE 29.6 mmol/L (21.0-32.0); CREATININE - SERUM 1.4 mg/dL (0.6-1.3); POTASSIUM - SERUM 4.5 mmol/L (3.5-5.1); PROTEIN - SERUM 6.9 g/dL (6.4-8.2)
--- NOTE | 2017-09-03 10:47 | NUR ---
Rehab Note- Contacted by Andrae with [facility] to fax clinicals for review for acute rehab stay. Faxed at this time. Will await determination from [facility] for possible acute rehab stay. Thank you for this referral! Diamond Maldonado RN Clinical Liaison, [facility] Rehab
--- NOTE | 2017-09-03 12:00 | NUR ---
FSBS 220. GIVEN 8 UNITS HUMALOG SUBQ PER SS. LUNCH SERVED IN ROOM.M
[2017-09-03 12:09] VITALS: BP 124/60
--- NOTE | 2017-09-03 14:02 | NUR ---
Rehab Note- received call from Andrae with [facility], informed the patient was denied an acute inpatient rehab stay, that the patient can receive care at a lower level as in a SNF. Spoke to Abbey CM. A peer to peer can be set up by calling [phone] before 09/04/17 at 1500. Reference #[id number]. Thank you for this referral! Diamond Maldonado RN Clinical Liaison, [facility] Rehab
--- NOTE | 2017-09-03 15:14 | NUR ---
patient being discharged today to the [facility] via their van to a skilled bed I called patients daughter Ann and let her know. CM will continue to follow and assist as needed
--- NOTE | 2017-09-03 15:25 | NUR ---
REPORT CALLED TO RODRICK NUNO LPN AT THE [facility]. ALL QUESTIONS ANSWERED. DENIES NEEDS.
--- NOTE | 2017-09-03 17:27 | NUR ---
DISCHARGED TO [facility]. DISCHARGE PAPERWORK GIVEN BOTH VERBALLY AND WRITTEN. ALL QUESTIONS ANSWERED. PATIENT VERBALIZED UNDERSTANDING OF SAME. PICKED UP BY THEIR TRANSPORTER. LEFT VIA WC WITH ALL BELONGINGS.
== END 2017-09-03 17:29 | DRG 470 ==
LOC: D.MS 08-23 13:02 → D.SDCHOLD 08-27 08:00 → D.MS 09-03 17:29
PROVIDERS: Anesthesiology; Family Medicine; ADMIT Orthopaedic Surgery
PROC: 0SRD0J9 Replacement of Left Knee Joint with Synthetic Substitute, Cemented, Open Approach (ICD-10-PCS; principal; 2017-08-27 08:00)
DX: M17.12 Unilateral primary osteoarthritis, left knee (principal); E11.65 Type 2 diabetes mellitus with hyperglycemia; Z79.4 Long term (current) use of insulin; Z86.718 Personal history of other venous thrombosis and embolism; Z79.01 Long term (current) use of anticoagulants; G47.33 Obstructive sleep apnea (adult) (pediatric)

== ENCOUNTER → 2017-09-21 14:40 | Outpatient (CLI) | payer MEDICARE ==
[2017-08-23 14:21] VITALS: BMI 34.5
[~2017-09-21 14:40] MED LIST: COUMADIN10 MG PO; COUMADIN5 MG PO; LOSARTAN POTASS25 MG PO; LOVASTATIN10 MG PO; PERCOCET 10/3251 TA1 PO; PRANDIN2 MG PO; PROSCAR5 MG PO; TRESIBA FL100 UNIT/1 SC; ZYRTEC10 MG PO
[2017-09-21 15:51] LABS: INR 2.81 (0.85-1.17); PROTIME 29.8 SECONDS (11.6-15.0)
== END | disposition home or self-care (01) ==
LOC: D.LABREF 14:40
PROVIDERS: Orthopaedic Surgery
DX: Z51.81 Encounter for therapeutic drug level monitoring (principal); Z79.01 Long term (current) use of anticoagulants; E11.9 Type 2 diabetes mellitus without complications

== ENCOUNTER → 2017-09-24 16:02 | Outpatient (CLI) | payer MEDICARE ==
[2017-09-24 16:27] LABS: INR 2.87 (0.85-1.17); PROTIME 30.3 SECONDS (11.6-15.0)
== END | disposition home or self-care (01) ==
LOC: D.LABREF 16:02
PROVIDERS: Orthopaedic Surgery
DX: Z51.81 Encounter for therapeutic drug level monitoring (principal); Z79.01 Long term (current) use of anticoagulants; R73.09 Other abnormal glucose

== ENCOUNTER → 2017-09-27 14:06 | Outpatient (CLI) | payer MEDICARE ==
[2017-09-27 15:08] LABS: INR 2.94 (0.85-1.17); PROTIME 30.9 SECONDS (11.6-15.0)
== END | disposition home or self-care (01) ==
LOC: D.LABREF 14:06
PROVIDERS: Orthopaedic Surgery
DX: Z51.81 Encounter for therapeutic drug level monitoring (principal); Z79.01 Long term (current) use of anticoagulants

== ENCOUNTER → 2017-10-01 15:16 | Outpatient (CLI) | payer MEDICARE ==
[2017-10-01 15:59] LABS: INR 3.08 (0.85-1.17); PROTIME 32.1 SECONDS (11.6-15.0)
== END | disposition home or self-care (01) ==
LOC: D.LABREF 15:16
PROVIDERS: Orthopaedic Surgery
DX: Z51.81 Encounter for therapeutic drug level monitoring (principal); Z79.01 Long term (current) use of anticoagulants; E11.9 Type 2 diabetes mellitus without complications

== ENCOUNTER → 2017-10-04 16:36 | Outpatient (CLI) | payer MEDICARE ==
[2017-10-04 17:11] LABS: INR 3.07 (0.85-1.17)
== END | disposition home or self-care (01) ==
LOC: D.LABREF 16:36
PROVIDERS: Orthopaedic Surgery
DX: Z51.81 Encounter for therapeutic drug level monitoring (principal); Z79.01 Long term (current) use of anticoagulants

== ENCOUNTER → 2017-10-10 11:39 | Outpatient (CLI) | payer MEDICARE ==
[2017-10-10 13:43] LABS: INR 3.34 (0.85-1.17); PROTIME 34.2 SECONDS (11.6-15.0)
== END | disposition home or self-care (01) ==
LOC: D.LABREF 11:39
PROVIDERS: Orthopaedic Surgery
DX: Z51.81 Encounter for therapeutic drug level monitoring (principal); Z79.01 Long term (current) use of anticoagulants; E11.9 Type 2 diabetes mellitus without complications

== ENCOUNTER → 2017-10-15 15:33 | Outpatient (CLI) | payer MEDICARE ==
[2017-10-15 19:52] LABS: INR 2.71 (0.85-1.17)
== END | disposition home or self-care (01) ==
LOC: D.LABREF 15:33
PROVIDERS: Orthopaedic Surgery
DX: Z51.81 Encounter for therapeutic drug level monitoring (principal); Z79.01 Long term (current) use of anticoagulants

== ENCOUNTER → 2017-10-19 12:44 | Outpatient (CLI) | payer MEDICARE ==
[2017-10-19 14:35] LABS: INR 3.08 (0.85-1.17)
== END | disposition home or self-care (01) ==
LOC: D.LABREF 12:44
PROVIDERS: Orthopaedic Surgery
DX: Z51.81 Encounter for therapeutic drug level monitoring (principal); Z79.01 Long term (current) use of anticoagulants

== ENCOUNTER → 2017-10-22 17:45 | Outpatient (CLI) | payer MEDICARE ==
[2017-10-22 18:09] LABS: INR 2.48 (0.85-1.17); PROTIME 26.2 SECONDS (11.6-15.0)
== END | disposition home or self-care (01) ==
LOC: D.LABREF 17:45
PROVIDERS: Orthopaedic Surgery
DX: Z51.81 Encounter for therapeutic drug level monitoring (principal); Z79.01 Long term (current) use of anticoagulants

== ENCOUNTER → 2017-10-25 14:11 | Outpatient (CLI) | payer MEDICARE ==
[2017-10-25 14:58] LABS: INR 2.44 (0.85-1.17); PROTIME 25.8 SECONDS (11.6-15.0)
== END | disposition home or self-care (01) ==
LOC: D.LABREF 14:11
PROVIDERS: Orthopaedic Surgery
DX: Z51.81 Encounter for therapeutic drug level monitoring (principal); Z79.01 Long term (current) use of anticoagulants

== ENCOUNTER → 2017-10-29 15:01 | Outpatient (CLI) | payer MEDICARE ==
[2017-10-29 16:20] LABS: INR 2.25 (0.85-1.17); PROTIME 24.2 SECONDS (11.6-15.0)
== END | disposition home or self-care (01) ==
LOC: D.LABREF 15:01
PROVIDERS: Orthopaedic Surgery
DX: Z51.81 Encounter for therapeutic drug level monitoring (principal); Z79.01 Long term (current) use of anticoagulants; E11.9 Type 2 diabetes mellitus without complications

== ENCOUNTER → 2017-11-01 15:19 | Outpatient (CLI) | payer MEDICARE ==
[2017-11-01 16:00] LABS: INR 1.75 (0.85-1.17); PROTIME 19.9 SECONDS (11.6-15.0)
== END | disposition home or self-care (01) ==
LOC: D.LABREF 15:19
PROVIDERS: Orthopaedic Surgery
DX: Z51.81 Encounter for therapeutic drug level monitoring (principal); Z79.01 Long term (current) use of anticoagulants

== ENCOUNTER → 2017-12-14 09:10 | Outpatient (CLI) | payer MEDICARE | END | disposition home or self-care (01) | LOC: D.US 09:10 | DX: R22.42 Localized swelling, mass and lump, left lower limb (principal) ==

== ENCOUNTER → 2018-01-01 10:59 | Outpatient (CLI) | payer OTHER | END | disposition home or self-care (01) | LOC: D.MRI 10:59 | DX: M54.16 Radiculopathy, lumbar region (principal) ==

== ENCOUNTER → 2018-04-11 07:49 | Outpatient (CLI) | payer OTHER | END | disposition home or self-care (01) | LOC: D.US 07:49 | DX: R22.42 Localized swelling, mass and lump, left lower limb (principal) ==

== ENCOUNTER 2018-08-16 12:23 | Emergency (ER) | payer OTHER ==
[~2018-08-16] VITALS: Ht 177.8 cm; Wt 111.8 kg
[2018-08-16 12:37] VITALS: Ht 177.8 cm; Wt 111.8 kg
[2018-08-16 13:21] LABS: BASOPHILS 0.1 % (0-2); EOSINOPHILS 1.7 % (0-7); HEMATOCRIT 43.8 % (42.0-54.0); HEMOGLOBIN 14.6 g/dL (13.5-17.5); IMMATURE GRANULOCYTES 0.2 % (0-5); LYMPHOCYTES 44.8 % (15-50); MCH 27.7 pg (26.0-34.0); MCHC 33.3 g/dL (31.0-37.0); MCV 83.1 fL (80.0-100.0); MEAN PLATELET VOLUME 10.8 fL (7.4-10.4); MONOCYTES 4.1 % (2-11); NEUTROPHILS 49.1 % (40-80); RBC 5.27 10x6/uL (4.20-6.10); RDW 13.8 % (11.5-14.5); WBC 13.7 10x3/uL (4.8-10.8)
[2018-08-16 13:23] LABS: PLATELET COUNT 162 10x3/uL (130-400)
[2018-08-16 13:35] LABS: ALBUMIN 3.4 g/dL (3.4-5.0); ANION GAP 13.4 mmol/L (8-16); BILIRUBIN - TOTAL 0.69 mg/dL (0.2-1.3); CALCIUM 8.4 mg/dL (8.5-10.1); CARBON DIOXIDE 23.4 mmol/L (21.0-32.0); CREATININE - SERUM 1.4 mg/dL (0.6-1.3); POTASSIUM - SERUM 4.8 mmol/L (3.5-5.1); PROTEIN - SERUM 6.5 g/dL (6.4-8.2)
[2018-08-16] MEDS ORDERED: ULTRAM50 MG PO (16:41)
[2018-08-16 17:58] VITALS: BP 125/65
== END 2018-08-16 17:30 | disposition home or self-care (01) ==
LOC: D.ER 12:23
PROVIDERS: Family Medicine
DX: M54.16 Radiculopathy, lumbar region (principal); E11.9 Type 2 diabetes mellitus without complications; N28.9 Disorder of kidney and ureter, unspecified; Z86.718 Personal history of other venous thrombosis and embolism; Z79.01 Long term (current) use of anticoagulants; Z85.820 Personal history of malignant melanoma of skin

== ENCOUNTER → 2018-10-07 06:32 | Outpatient (CLI) | payer OTHER ==
[2018-08-16 12:37] VITALS: BMI 35.3
[~2018-10-07 06:32] MED LIST changes: +ULTRAM50 MG PO
== END | disposition home or self-care (01) ==
LOC: D.MRI 06:32
DX: S69.91XA Unspecified injury of right wrist, hand and finger(s), initial encounter (principal); X58.XXXA Exposure to other specified factors, initial encounter

== ENCOUNTER 2021-01-07 14:51 | Inpatient (IN) | payer MEDICARE ==
[~2021-01-07] VITALS: Ht 175.3 cm; Wt 127.0 kg
[~2021-01-07 14:51] MED LIST changes: -COUMADIN10 MG PO; +WARFARIN SODIU7.5 MG PO
[2021-01-07] MEDS ORDERED: ACETAMINOPHEN325 MG PO (15:11)
--- NOTE | 2021-01-07 15:23 | NUR ---
TO ISOLATION ROOM AND PLACED ON DROPLET PERCAUTIONS. O2 SATS 91-92% ON RA PLACED ON 2 L PNC AND RT CALLED FOR ABG'S
[2021-01-07 16:07] LABS: HEMATOCRIT 42.7 % (42.0-54.0); HEMOGLOBIN 13.9 g/dL (13.5-17.5); LYMPHOCYTE ABS# 6.37 10x3/uL (1.32-3.57); MCH 27.2 pg (26.0-34.0); MCHC 32.6 g/dL (31.0-37.0); MCV 83.6 fL (80.0-100.0); MEAN PLATELET VOLUME 9.6 fL (7.4-10.4); NEUTROPHIL ABS# 4.86 10x3/uL (1.78-5.38); RBC 5.11 10x6/uL (4.20-6.10); RDW 14.1 % (11.5-14.5)
[2021-01-07 16:09] LABS: PLATELET COUNT 253 10x3/uL (130-400)
[2021-01-07 16:11] LABS: EOSINOPHILS 1 % (0-7); LYMPHOCYTES 55 % (15-50); MONOCYTES 6 % (2-11); NEUTROPHILS 38 % (40-80); PLATELET ESTIMATE NORMAL
[2021-01-07 16:42] LABS: CALC OSMOLALITY 286 mosm/kg (275-300); CALCIUM 8.4 mg/dL (8.5-10.1); CARBON DIOXIDE 24.3 mmol/L (21.0-32.0); CHLORIDE - SERUM 107 mmol/L (98-107); CREATININE - SERUM 1.3 mg/dL (0.6-1.3); POTASSIUM - SERUM 3.7 mmol/L (3.5-5.1); SODIUM 140 mmol/L (136-145); UREA NITROGEN 37 mg/dL (7-18); eGFR NON AFRICAN AMERICAN 57 mL/min (90-120)
[2021-01-07 16:47] LABS: GLUCOSE 86 mg/dL (74-106)
[2021-01-07 16:58] LABS: ALKALINE PHOSPHATASE 100 U/L (30-120); ALT (SGPT) 26 U/L (10-68); BILIRUBIN - TOTAL 0.57 mg/dL (0.2-1.3); CKMB 1.4 U/L (0.0-3.6); CREATINE KINASE 66 UL (21-232); PRO BNP 103 pg/mL (0-125); PROTEIN - SERUM 6.5 g/dL (6.4-8.2); TROPONIN-I < 0.017 ng/mL (0.000-0.060)
[2021-01-07 17:06] LABS: INR 1.61 (0.85-1.17); PROTIME 17.8 SECONDS (11.6-15.0)
[2021-01-07 17:07] LABS: D-DIMER-QUANTITATIVE < 0.27 ug/mLFEU (0.20-0.54)
[2021-01-07 17:11] LABS: APTT 161.5 SECONDS (22.8-39.4)
--- NOTE | 2021-01-07 18:36 | NUR ---
PT BLOOD GLUCOSE 58. ORANGE JUICE, BOX LUNCH, MILK CARTON TO PT. PT DRINKING AND EATING. MD AWARE. WILL CONTINUE TO MONITOR.
[2021-01-07 19:00] VITALS: BP 121/81
[2021-01-07 20:00] VITALS: BP 145/78
[2021-01-07 21:00] VITALS: BP 150/80
[2021-01-07 21:42] VITALS: BP 148/83
--- NOTE | 2021-01-07 22:50 | NUR ---
PT FROM ER VIA STRECTHER, PT MOVED TO BED WITH ASSISTANCE. PT RESP EVEN AND UNLABORED, NO DISTRESS NOTED, CL IN REACH, SR UP X 2.
[2021-01-07 23:03] VITALS: BP 142/67; BMI 37.0
[2021-01-07 23:04] LABS: BILIRUBIN NEGATIVE (NEGATIVE); KETONE NEGATIVE (NEGATIVE); NITRITE NEGATIVE (NEGATIVE); UROBILINOGEN NORMAL mg/dL (< 2)
[2021-01-07 23:13] LABS: C-REACTIVE PROTEIN 6.5 mg/dL (0.0-0.9)
[2021-01-07 23:31] LABS: INFLUENZA TYPE A NEGATIVE (NEGATIVE); INFLUENZA TYPE B NEGATIVE (NEGATIVE); SARS-CoV-2 ANTIGEN NEGATIVE- SARS-COV-2 (NEGATIVE)
[2021-01-07 23:52] LABS: ERYTHROCYTE SEDIMENTATION RATE 28 mm/hr (0-20)
[2021-01-08 04:51] VITALS: BP 121/63
[2021-01-08 08:33] LABS: HEMATOCRIT 39.4 % (42.0-54.0); HEMOGLOBIN 12.8 g/dL (13.5-17.5); LYMPHOCYTE ABS# 5.29 10x3/uL (1.32-3.57); MCH 27.1 pg (26.0-34.0); MCHC 32.5 g/dL (31.0-37.0); MCV 83.3 fL (80.0-100.0); MEAN PLATELET VOLUME 9.9 fL (7.4-10.4); NEUTROPHIL ABS# 4.69 10x3/uL (1.78-5.38); RBC 4.73 10x6/uL (4.20-6.10); RDW 14.1 % (11.5-14.5); WBC 10.2 10x3/uL (4.8-10.8)
[2021-01-08 08:40] VITALS: BP 121/62
[2021-01-08 08:41] VITALS: BMI 36.9
[2021-01-08 08:50] LABS: ALBUMIN 2.4 g/dL (3.4-5.0); BILIRUBIN - TOTAL 0.42 mg/dL (0.2-1.3); CALCIUM 8.5 mg/dL (8.5-10.1); CARBON DIOXIDE 22.5 mmol/L (21.0-32.0); CREATININE - SERUM 1.1 mg/dL (0.6-1.3); PHOSPHOROUS 3.2 mg/dL (2.5-4.9); PROTEIN - SERUM 6.3 g/dL (6.4-8.2)
[2021-01-08 08:51] LABS: ANION GAP 13.1 mmol/L (8-16); POTASSIUM - SERUM 4.6 mmol/L (3.5-5.1)
[2021-01-08 08:53] LABS: PLATELET COUNT 337 10x3/uL (130-400)
[2021-01-08 09:25] LABS: LYMPHOCYTES 55 % (15-50); NEUTROPHILS 45 % (40-80); PLATELET ESTIMATE NORMAL
[2021-01-08 10:31] LABS: INR 16.46 (0.85-1.17); PROTIME 110.7 SECONDS (11.6-15.0)
[2021-01-08 11:44] VITALS: BP 124/65
[2021-01-08 15:12] LABS: INR 15.66 (0.85-1.17); PROTIME 106.5 SECONDS (11.6-15.0)
[2021-01-08 16:01] VITALS: BP 131/68
[2021-01-08 20:06] VITALS: BP 131/62
[2021-01-09 01:11] VITALS: BP 129/66
[2021-01-09 05:14] LABS: BASOPHILS 0.1 % (0-2); EOSINOPHILS 0.1 % (0-7); HEMATOCRIT 36.7 % (42.0-54.0); IMMATURE GRANULOCYTES 0.5 % (0-5); LYMPHOCYTE ABS# 4.73 10x3/uL (1.32-3.57); LYMPHOCYTES 37.9 % (15-50); MCH 26.9 pg (26.0-34.0); MCHC 32.7 g/dL (31.0-37.0); MCV 82.3 fL (80.0-100.0); MEAN PLATELET VOLUME 9.9 fL (7.4-10.4); MONOCYTES 6.6 % (2-11); NEUTROPHIL ABS# 6.84 10x3/uL (1.78-5.38); NEUTROPHILS 54.8 % (40-80); PLATELET COUNT 305 10x3/uL (130-400); RBC 4.46 10x6/uL (4.20-6.10); WBC 12.5 10x3/uL (4.8-10.8)
[2021-01-09 05:24] LABS: INR 1.89 (0.85-1.17); PROTIME 20.1 SECONDS (11.6-15.0)
[2021-01-09 05:47] VITALS: BP 114/67
[2021-01-09 05:52] LABS: ALBUMIN 2.3 g/dL (3.4-5.0); ANION GAP 17.6 mmol/L (8-16); BILIRUBIN - TOTAL 0.4 mg/dL (0.2-1.3); CALCIUM 8.1 mg/dL (8.5-10.1); CARBON DIOXIDE 20.4 mmol/L (21.0-32.0); CREATININE - SERUM 1.2 mg/dL (0.6-1.3); MAGNESIUM - SERUM 1.9 mg/dL (1.8-2.4); PHOSPHOROUS 3.1 mg/dL (2.5-4.9); PROTEIN - SERUM 5.7 g/dL (6.4-8.2)
[2021-01-09 07:50] VITALS: BP 115/59
--- NOTE | 2021-01-09 08:44 | NUR ---
AM MEDS GIVEN AT THIS TIME. PT A/O X4, RESP EVEN AND NONLABORED ON 2L NC. LT FA IV SL. SB-58 ON TELEMETRY. HELPED PT TO BATHROOM AND BACK TO BED, PT DENIES ANY OTHER NEEDS AT THIS TIME. CALL LIGHT IN REACH.
--- NOTE | 2021-01-09 10:30 | NUR ---
SHOWER AND COMPETE LINEN CHANGE DONE BY SLAT BASKET MAKER MACHINE AT THIS TIME.
[2021-01-09 11:05] VITALS: BP 111/60
[2021-01-09 15:26] VITALS: BP 128/65
[2021-01-09 20:51] VITALS: BP 125/61
[2021-01-10] VITALS (7 sets, daily range): BP systolic 107–123; BP diastolic 54–74
--- NOTE | 2021-01-10 04:41 | NUR ---
PT RESTED QUIETLY DURING THE NIGHT. RR EVEN AND UNLABORED. NO S/S OF DISTRESS OBSERVED. DENIES NEEDS. CL IN REACH. WILL CPOC.
[2021-01-10 06:47] LABS: ALBUMIN 2.4 g/dL (3.4-5.0); ANION GAP 17.2 mmol/L (8-16); BILIRUBIN - TOTAL 0.44 mg/dL (0.2-1.3); CALCIUM 7.7 mg/dL (8.5-10.1); CARBON DIOXIDE 21.1 mmol/L (21.0-32.0); CREATININE - SERUM 1.2 mg/dL (0.6-1.3); MAGNESIUM - SERUM 1.8 mg/dL (1.8-2.4); PHOSPHOROUS 2.8 mg/dL (2.5-4.9); POTASSIUM - SERUM 4.3 mmol/L (3.5-5.1); PROTEIN - SERUM 5.2 g/dL (6.4-8.2)
[2021-01-10 07:03] LABS: APTT 30.1 SECONDS (22.8-39.4); INR 1.65 (0.85-1.17); PROTIME 18.1 SECONDS (11.6-15.0)
[2021-01-10 07:10] LABS: BASOPHILS 0 % (0-2); EOSINOPHILS 0.2 % (0-7); HEMATOCRIT 37.6 % (42.0-54.0); HEMOGLOBIN 12.4 g/dL (13.5-17.5); IMMATURE GRANULOCYTES 0.7 % (0-5); LYMPHOCYTE ABS# 6.25 10x3/uL (1.32-3.57); LYMPHOCYTES 38.2 % (15-50); MCH 27.3 pg (26.0-34.0); MCV 82.6 fL (80.0-100.0); MEAN PLATELET VOLUME 10.4 fL (7.4-10.4); MONOCYTES 6.2 % (2-11); NEUTROPHIL ABS# 8.93 10x3/uL (1.78-5.38); NEUTROPHILS 54.7 % (40-80); PLATELET COUNT 288 10x3/uL (130-400); RBC 4.55 10x6/uL (4.20-6.10); RDW 13.9 % (11.5-14.5)
[2021-01-10 07:43] LABS: WBC 16.3 10x3/uL (4.8-10.8)
--- NOTE | 2021-01-10 09:25 | NUR ---
PLASMA STARTED INFUSING, PRE- VITAL SIGNS STABLE, PT RESTING COMFORTABLY IN BED, DENIES ANY NEEDS AT THIS TIME. WILL MONITOR FOR FIRST 15MIN.
--- NOTE | 2021-01-10 11:31 | NUR ---
Nutrition Consult/Follow-up: Pt in droplet isolation; covid-19+. Called pt to discuss questions/concerns. Fair appetite. Denies N/V, loss of taste/smell. States that he aims to eat <25 g carbs/day. Requests to have no rice, pasta, bread on tray; extra protein on trays. Diet: Diabetic PO intake: 100% x 3 yesterday Wt: 250# (01/08) Labs noted: Glu 152, Ca 7.7, Alb 2.4 Meds noted: Humulin, Protonix, Florajen, Decadron, zinc sulfate, vit B1, vit C, vit D, NS @ 50 -Diet order adjusted per pt preferences (no rice, pasta, bread; extra protein). -Will ask kitchen to call for menu selections. -Encourage PO intake and honor food preferences within diet restrictions. - follow-up: 01/12
--- NOTE | 2021-01-10 23:50 | NUR ---
PATIENT SITTING HIGH FOWLERS AAOX4, RESP EVEN AND NON LABORED, NO S/S OF DISTRESS, IV OUT, 20G IV X1 ATTEMPT SUCESSFUL TO LEFT FOREARM, IV MEDICATIONS INFUSING,PO MEDICATIONS ADMINISTERED WITHOUT COMPLIACTIONS, NO FURTHER NEEDS AT THIS TIME, CLIR, BLP
[2021-01-11] VITALS: BP 137/75
--- NOTE | 2021-01-11 01:56 | NUR ---
I have reviewed this patient and I concur with the Shift Assessment completed by the Licensed Practical Nurse today this shift.
[2021-01-11 04:00] VITALS: BP 137/75
[2021-01-11 05:27] LABS: HEMOGLOBIN 13.8 g/dL (13.5-17.5); MCH 27.1 pg (26.0-34.0); MCHC 32.9 g/dL (31.0-37.0); MCV 82.4 fL (80.0-100.0); MEAN PLATELET VOLUME 9.6 fL (7.4-10.4); NEUTROPHIL ABS# 12.84 10x3/uL (1.78-5.38); PLATELET COUNT 179 10x3/uL (130-400); RDW 13.9 % (11.5-14.5); WBC 22.4 10x3/uL (4.8-10.8)
[2021-01-11 05:32] LABS: INR 1.71 (0.85-1.17); PROTIME 18.6 SECONDS (11.6-15.0)
[2021-01-11 05:37] LABS: ALBUMIN 2.6 g/dL (3.4-5.0); ANION GAP 14.7 mmol/L (8-16); BILIRUBIN - TOTAL 0.65 mg/dL (0.2-1.3); CALCIUM 8.2 mg/dL (8.5-10.1); CARBON DIOXIDE 23.5 mmol/L (21.0-32.0); CREATININE - SERUM 1.3 mg/dL (0.6-1.3); MAGNESIUM - SERUM 1.8 mg/dL (1.8-2.4); PHOSPHOROUS 3.2 mg/dL (2.5-4.9); POTASSIUM - SERUM 4.2 mmol/L (3.5-5.1); PROTEIN - SERUM 6.3 g/dL (6.4-8.2)
[2021-01-11 05:55] LABS: LYMPHOCYTES 34 % (15-50); MONOCYTES 3 % (2-11); NEUTROPHILS 61 % (40-80); PLATELET ESTIMATE DECREASED
--- NOTE | 2021-01-11 07:20 | NUR ---
RECIEVE REPORT. ALERT AND ORIENTED X4. SITTING UP IN BED. SINUS TACH 112 ON TELEMETRY. DENIES ANY NEEDS. CONTINUE PLAN OF CARE AND SAFETY PRECAUTIONS.
[2021-01-11 08:00] VITALS: BP 131/78
[2021-01-11 11:00] VITALS: BP 138/81
--- NOTE | 2021-01-11 13:38 | NUR ---
ALERT AND ORIENTED X4. SITTING UP IN BED. NONREBREATHER @ 15L. DYSPNEA. O2 SAT TRENDS 85-90%. NOTIFY ANDRZEJ PEREZ. ABGs ORDERED.
--- NOTE | 2021-01-11 13:59 | NUR ---
NOTIFY OF PO2-49.7. BIPAP ORDERED 02/07 40%. NOTIFY RESPIRATORY.
--- NOTE | 2021-01-11 14:28 | NUR ---
ALERT AND ORIENTED X4. BIPAP AT 100% O2 SAT 91%. RESPIRATIONS 34. SPOKE WITH ANN, DAUGHTER OF STATUS CHANGE.
[2021-01-11 15:00] VITALS: BP 132/80
[2021-01-11 20:00] VITALS: BP 136/71
--- NOTE | 2021-01-11 20:00 | NUR ---
REPORT RECEIVED, WILL CONT POC. PT A&O. S/S OF DISTRESS OBSERVED WITH RAPID, LABORED BREATHING. RR'S 48. EDUCATED PT OF BREATHING EXERCISES. NOTIFIED RT OF PTS CONDITION. ABGS DRAWN. PT DENIES NEEDS AT THIS TIME. BED LOCKED AND LOWERED, CL IN REACH. ASSESSMENT COMPLETED AT THIS TIME. WILL CONT TO MONITOR.
--- NOTE | 2021-01-11 22:30 | NUR ---
ISRAEL NOTIFIED OF PTS CONDITION. ORDERS TO MOVE PT TO ICU. NOTIFIED ICU SYSTEMS MANAGEMENT CONSULTANT. AWAITING BED PLACEMENT.
[2021-01-12] VITALS (23 sets, daily range): BP systolic 92–152; BP diastolic 67–92
--- NOTE | 2021-01-12 00:36 | NUR ---
PT TRANSFERED TO ICU, ACCOMPANIED BY THIS RN AND RT. REPORT GIVEN.
[2021-01-12 05:30] LABS: BASOPHILS 0 % (0-2); EOSINOPHILS 0 % (0-7); HEMATOCRIT 43.3 % (42.0-54.0); HEMOGLOBIN 14.4 g/dL (13.5-17.5); IMMATURE GRANULOCYTES 0.5 % (0-5); LYMPHOCYTE ABS# 9.21 10x3/uL (1.32-3.57); LYMPHOCYTES 30.6 % (15-50); MCH 27.1 pg (26.0-34.0); MCHC 33.3 g/dL (31.0-37.0); MCV 81.5 fL (80.0-100.0); MEAN PLATELET VOLUME 9.8 fL (7.4-10.4); NEUTROPHIL ABS# 19.21 10x3/uL (1.78-5.38); NEUTROPHILS 63.9 % (40-80); PLATELET COUNT 98 10x3/uL (130-400); PROTIME 22.2 SECONDS (11.6-15.0); RBC 5.31 10x6/uL (4.20-6.10); RDW 13.9 % (11.5-14.5); WBC 30.1 10x3/uL (4.8-10.8)
[2021-01-12 05:32] LABS: INR 2.14 (0.85-1.17)
[2021-01-12 05:34] LABS: ALBUMIN 2.5 g/dL (3.4-5.0); ANION GAP 17.3 mmol/L (8-16); BILIRUBIN - TOTAL 1.16 mg/dL (0.2-1.3); CALCIUM 8.4 mg/dL (8.5-10.1); CARBON DIOXIDE 22.4 mmol/L (21.0-32.0); CREATININE - SERUM 1.3 mg/dL (0.6-1.3); MAGNESIUM - SERUM 1.8 mg/dL (1.8-2.4); PHOSPHOROUS 2.5 mg/dL (2.5-4.9); POTASSIUM - SERUM 3.7 mmol/L (3.5-5.1); PROTEIN - SERUM 6.3 g/dL (6.4-8.2)
--- NOTE | 2021-01-12 07:30 | NUR ---
PT PLACED ON 15L HIGH FLOW FOR BREAKFAST, PT ATE A FEW BITES AND BECAME SOB, O2 SAT 75%, PT PLACED BACK ON BIPAP, 02 SAT 96%, NO NEEDS VOICED AT THIS TIME, CALL LIGHT IN REACH, WILL MONITOR
--- NOTE | 2021-01-12 09:40 | NUR ---
DR WOOD HERE SEEING PATIENT
--- NOTE | 2021-01-12 10:24 | NUR ---
Nutrition follow-up: Pt now in ICU due to breathing issues; BIPAP in place PO intake on floor was adequate; poor po intake at this time due to BIPAP Diet order: consistent CHO with very low CHO intake; see diet order for preferences Labs reviewed Wt: 243# +BM Recommendations: Procalamine PPN @ 125 ml/hr short-term to provide: 735 kcal, 90 gm protein, 3000 ml fluid May need to consider PEG tube placement if nutritional status deteriorates more over the next several days. RDN follow-up: 01/14/21
--- NOTE | 2021-01-12 14:30 | NUR ---
WATER OFFERED AND PT PLACED BACK ON BIPAP, TOLERATED WELL, WILL MONITOR
--- NOTE | 2021-01-12 16:34 | NUR ---
resting with bipap in place, no needs voiced at this time, will monitor
[2021-01-13] VITALS (23 sets, daily range): BP systolic 97–141; BP diastolic 22–89
[2021-01-13 04:46] LABS: INR 1.92 (0.85-1.17); PROTIME 20.4 SECONDS (11.6-15.0)
--- NOTE | 2021-01-13 04:47 | NUR ---
pt maintaining sats throughout shift on current settings. resp even:unlaborred. will cont to monitor closely.
--- NOTE | 2021-01-13 19:00 | NUR ---
PT AWAKE ON BIPAP. SOB AND DYSPNEA NOTED WITH EXERTION. RESP RATE IN 30S. SATS 94-98%. PT AAOX4. PIV SITE DRESSING CHANGED. DUONG IN PLACE. VITAL SIGNS STABLE. PT DENIES PAIN. WILL CONTINUE TO MONITOR.
[2021-01-14] VITALS (22 sets, daily range): BP systolic 102–150; BP diastolic 48–97
--- NOTE | 2021-01-14 09:29 | NUR ---
DR. WOOD HERE FOR ROUNDS. ORDERS RECEIVED.
[2021-01-14 10:08] LABS: ANION GAP 9.8 mmol/L (8-16); CALCIUM 7.9 mg/dL (8.5-10.1); CARBON DIOXIDE 27.3 mmol/L (21.0-32.0); CREATININE - SERUM 1.4 mg/dL (0.6-1.3); POTASSIUM - SERUM 4.1 mmol/L (3.5-5.1)
--- NOTE | 2021-01-14 11:15 | NUR ---
DAUGHTER CALLED. UPDATE GIVEN.
--- NOTE | 2021-01-14 12:39 | NUR ---
Nutrition follow-up: Pt discussed during IDT team rounds BIPAP on at this time Diet order: consistent CHO PO intake 65% of dinner meal 01/13/21 Labs reviewed Wt: 251# RDN will order Magic cup, Mighty shake with lunch, dinner meals to increase kcal, protein intake RDN follow-up: 01/17/21
[2021-01-15] VITALS (22 sets, daily range): BP systolic 118–145; BP diastolic 61–473
[2021-01-15 04:19] LABS: INR 2.04 (0.85-1.17); PROTIME 21.4 SECONDS (11.6-15.0)
[2021-01-15 04:23] LABS: ANION GAP 10.3 mmol/L (8-16); CALCIUM 7.9 mg/dL (8.5-10.1); CARBON DIOXIDE 26.3 mmol/L (21.0-32.0); CREATININE - SERUM 1.2 mg/dL (0.6-1.3); POTASSIUM - SERUM 4.6 mmol/L (3.5-5.1)
[2021-01-15 05:11] LABS: HEMATOCRIT 37.6 % (42.0-54.0); LYMPHOCYTE ABS# 6.48 10x3/uL (1.32-3.57); MCH 26.4 pg (26.0-34.0); MCHC 31.9 g/dL (31.0-37.0); MCV 82.6 fL (80.0-100.0); NEUTROPHIL ABS# 14.28 10x3/uL (1.78-5.38); PLATELET COUNT 51 10x3/uL (130-400); RBC 4.55 10x6/uL (4.20-6.10); RDW 14.1 % (11.5-14.5); WBC 21.6 10x3/uL (4.8-10.8)
[2021-01-15 05:45] LABS: EOSINOPHILS 1 % (0-7); LYMPHOCYTES 27 % (15-50); MONOCYTES 1 % (2-11); NEUTROPHILS 71 % (40-80); PLATELET ESTIMATE DECREASED
--- NOTE | 2021-01-15 18:19 | NUR ---
ASSISTED PT OOB TO BSC FOR BM. PT DID HAVE BM. ASSISTED BACK TO BED. PT C/O C/P. EKG DONE. CE ORDERED.
--- NOTE | 2021-01-15 19:30 | NUR ---
PT AAOX4. PIV X2. IVF INFUSING TO RIGHT HAND WITHOUT COMPLICATION. ON 100% BIPAP SATS 100%. ABLE TO COME OFF AND TOLERATE DRINKING WATER. ONLY COMPLAINT AT THIS TIME IS BACK PAIN. PT NO LONGER C/O CHEST PAIN. DUONG TO GRAVITY. ST ON MONITOR. SKIN INTACT. LAB AT BEDSIDE WILL CONTINUE TO MONITOR. SEE ASSESSMENT
[2021-01-16] VITALS (22 sets, daily range): BP systolic 100–130; BP diastolic 49–76; Ht 175.3 cm; Wt 127.0 kg
--- NOTE | 2021-01-16 02:30 | NUR ---
ROUTINE CONSULT CALLED TO DR. WOMACK FOR INCREASED TROPONIN
[2021-01-16 03:24] LABS: BASOPHILS 0 % (0-2); EOSINOPHILS 0 % (0-7); HEMATOCRIT 38.4 % (42.0-54.0); HEMOGLOBIN 12.6 g/dL (13.5-17.5); IMMATURE GRANULOCYTES 0.4 % (0-5); LYMPHOCYTE ABS# 8.53 10x3/uL (1.32-3.57); LYMPHOCYTES 31.9 % (15-50); MCH 26.9 pg (26.0-34.0); MCHC 32.8 g/dL (31.0-37.0); MCV 82.1 fL (80.0-100.0); MEAN PLATELET VOLUME 11.3 fL (7.4-10.4); MONOCYTES 3.7 % (2-11); NEUTROPHIL ABS# 17.08 10x3/uL (1.78-5.38); PLATELET COUNT 67 10x3/uL (130-400); RBC 4.68 10x6/uL (4.20-6.10); WBC 26.7 10x3/uL (4.8-10.8)
[2021-01-16 03:32] LABS: INR 1.84 (0.85-1.17); PROTIME 19.7 SECONDS (11.6-15.0)
[2021-01-16 03:43] LABS: ANION GAP 5.4 mmol/L (8-16); CALCIUM 8.1 mg/dL (8.5-10.1); CARBON DIOXIDE 31.2 mmol/L (21.0-32.0); CREATININE - SERUM 1.4 mg/dL (0.6-1.3); POTASSIUM - SERUM 4.6 mmol/L (3.5-5.1)
--- NOTE | 2021-01-16 15:04 | NUR ---
PATIENT THIS AM CAME OFF BIPAP AND AT THIS TIME REMAINS OFF BIPAP AND ON NASAL CANNULA AND NRM AND DOING OK AT THIS MOMENTS. LEFT SALINE LOCK SITE REDRESSED AND NO LEAK NOTED.
[2021-01-17] VITALS (23 sets, daily range): BP systolic 113–162; BP diastolic 55–97
[2021-01-17 05:40] LABS: ALBUMIN 2.2 g/dL (3.4-5.0); ANION GAP 8.2 mmol/L (8-16); BILIRUBIN - TOTAL 0.99 mg/dL (0.2-1.3); CALCIUM 8.3 mg/dL (8.5-10.1); CARBON DIOXIDE 32.4 mmol/L (21.0-32.0); CREATININE - SERUM 1.4 mg/dL (0.6-1.3); MAGNESIUM - SERUM 2.2 mg/dL (1.8-2.4); POTASSIUM - SERUM 4.6 mmol/L (3.5-5.1); PROTEIN - SERUM 5.9 g/dL (6.4-8.2)
[2021-01-17 05:59] LABS: HEMATOCRIT 41.5 % (42.0-54.0); HEMOGLOBIN 13.6 g/dL (13.5-17.5); LYMPHOCYTE ABS# 9.72 10x3/uL (1.32-3.57); MCH 26.9 pg (26.0-34.0); MCHC 32.8 g/dL (31.0-37.0); MCV 82.2 fL (80.0-100.0); MEAN PLATELET VOLUME 11.5 fL (7.4-10.4); PLATELET COUNT 70 10x3/uL (130-400); RBC 5.05 10x6/uL (4.20-6.10); WBC 28.6 10x3/uL (4.8-10.8)
--- NOTE | 2021-01-17 08:00 | NUR ---
assisted pt with breakfast tray, only a few bites consumed, pt placed back on bipap, will monitor
--- NOTE | 2021-01-17 10:30 | NUR ---
notified dr. greer office about consult
[2021-01-17 12:43] LABS: EOSINOPHILS 1 % (0-7); LYMPHOCYTES 21 % (15-50); MONOCYTES 10 % (2-11); NEUTROPHILS 66 % (40-80); PLATELET ESTIMATE DECREASED
--- NOTE | 2021-01-17 12:49 | NUR ---
Nutrition follow-up: Discussed during IDT team rounds Diet: Consistent CHO PO intake just a few bites due to BIPAP Labs reviewed WT: 240# ProcalAmine PPN starting today @ 75 ml/hr Providin kcal, 72 gm protein RDN follow-up: 01/18/21
--- NOTE | 2021-01-17 14:49 | NUR ---
pt sleeping with bipap in place, tolerating well, will monitor
[2021-01-18] VITALS (23 sets, daily range): BP systolic 105–143; BP diastolic 20–84
--- NOTE | 2021-01-18 04:00 | NUR ---
PT TURNED FOR BATH. TACHYPNEA OBSERVED SATS 88-92%. FIO2 INCREASED TO 100%. ST ON MONITOR PT BREATHING IN MID 30S. DENIES FEELING LABORED. WILL CONTINUE TO MONITOR
[2021-01-18 04:17] LABS: BASOPHILS 0 % (0-2); EOSINOPHILS 0.1 % (0-7); HEMOGLOBIN 13.4 g/dL (13.5-17.5); IMMATURE GRANULOCYTES 0.7 % (0-5); LYMPHOCYTE ABS# 8.64 10x3/uL (1.32-3.57); LYMPHOCYTES 38.3 % (15-50); MCH 26.9 pg (26.0-34.0); MCHC 32.7 g/dL (31.0-37.0); MCV 82.2 fL (80.0-100.0); MEAN PLATELET VOLUME 10.8 fL (7.4-10.4); MONOCYTES 3.3 % (2-11); NEUTROPHIL ABS# 12.99 10x3/uL (1.78-5.38); NEUTROPHILS 57.6 % (40-80); PLATELET COUNT 85 10x3/uL (130-400); RBC 4.99 10x6/uL (4.20-6.10); RDW 13.8 % (11.5-14.5); WBC 22.6 10x3/uL (4.8-10.8)
[2021-01-18 04:22] LABS: INR 1.83 (0.85-1.17); PROTIME 19.6 SECONDS (11.6-15.0)
[2021-01-18 04:35] LABS: D-DIMER-QUANTITATIVE 15.4 ug/mLFEU (0.20-0.54)
[2021-01-18 05:03] LABS: ANION GAP 11.2 mmol/L (8-16); BILIRUBIN - TOTAL 0.93 mg/dL (0.2-1.3); C-REACTIVE PROTEIN 7.1 mg/dL (0.0-0.9); CALCIUM 8.1 mg/dL (8.5-10.1); CARBON DIOXIDE 29.5 mmol/L (21.0-32.0); CREATININE - SERUM 1.3 mg/dL (0.6-1.3); MAGNESIUM - SERUM 2.2 mg/dL (1.8-2.4); POTASSIUM - SERUM 4.7 mmol/L (3.5-5.1); PROTEIN - SERUM 5.8 g/dL (6.4-8.2)
--- NOTE | 2021-01-18 05:25 | NUR ---
0525: DR. THIAGO HAJI FOR CRITICAL D-DIMER. AWAITING CALL BACK
--- NOTE | 2021-01-18 06:00 | NUR ---
2ND PAGE TO DR DAS TO REPORT CRITICAL LAB VALUES
--- NOTE | 2021-01-18 06:25 | NUR ---
DR. DAS PAGED AGAIN TO REPORT CRITICAL LAB VALUES. AWAITING CALL BACK
--- NOTE | 2021-01-18 06:45 | NUR ---
SPOKE WITH DR. DAS NOTIFIED OF CRITICAL D-DIMER 15.4. PT ON LOVENOX & COUMADIN. NO NEW ORDERS
--- NOTE | 2021-01-18 07:45 | NUR ---
PT PLACED ON HIGH FLOW NC FOR BREAKFAST, PT SOB AND UNABLE TO EAT, PT DRANK SOME GLUCERNA, PT PLACED BACK ON BIPAP, WILL MONITOR
--- NOTE | 2021-01-18 09:45 | NUR ---
DR DAS HERE SEEING PATIENT
--- NOTE | 2021-01-18 13:45 | NUR ---
THERAPY IN WORKING WITH PATIENT
--- NOTE | 2021-01-18 17:33 | NUR ---
DR. Thomas here seeing patient
--- NOTE | 2021-01-18 19:30 | NUR ---
RECEIVED BEDSIDE REPORT. ROUNDING COMPLETE. PATIENT IS ALERT AND ORIENTED, RESTING COMFORTABLY IN BED. PATIENT CONTINUES TO WEAR HIS BIPAP. PATIENT ANXIOUSLY WANTING TO KNOW WHAT HIS O2 SAT IS. NO S/S OF DISTRESS. NO C/O PAIN. NEEDS MET. CALL LIGHT WITHIN REACH. WILL CPOC.
[2021-01-19] VITALS (22 sets, daily range): BP systolic 114–147; BP diastolic 65–90
[2021-01-19 04:07] LABS: INR 1.78 (0.85-1.17); PROTIME 19.2 SECONDS (11.6-15.0)
[2021-01-19 04:09] LABS: HEMATOCRIT 41.6 % (42.0-54.0); HEMOGLOBIN 13.6 g/dL (13.5-17.5); LYMPHOCYTE ABS# 8.18 10x3/uL (1.32-3.57); MCH 26.7 pg (26.0-34.0); MCHC 32.7 g/dL (31.0-37.0); MCV 81.7 fL (80.0-100.0); PLATELET COUNT 115 10x3/uL (130-400); RBC 5.09 10x6/uL (4.20-6.10); RDW 13.7 % (11.5-14.5); WBC 24.6 10x3/uL (4.8-10.8)
[2021-01-19 04:17] LABS: ALBUMIN 2.1 g/dL (3.4-5.0); ANION GAP 10.9 mmol/L (8-16); BILIRUBIN - TOTAL 0.99 mg/dL (0.2-1.3); CALCIUM 8.4 mg/dL (8.5-10.1); CARBON DIOXIDE 27.4 mmol/L (21.0-32.0); CREATININE - SERUM 1.4 mg/dL (0.6-1.3); MAGNESIUM - SERUM 2.2 mg/dL (1.8-2.4); POTASSIUM - SERUM 5.3 mmol/L (3.5-5.1); PROTEIN - SERUM 5.9 g/dL (6.4-8.2)
[2021-01-19 04:52] LABS: LYMPHOCYTES 22 % (15-50); NEUTROPHILS 78 % (40-80); PLATELET ESTIMATE DECREASED
--- NOTE | 2021-01-19 08:00 | NUR ---
pt taken off bipap and glucerna offered, pt very sob, pt placed back on bipap, call light in reach, will monitor
--- NOTE | 2021-01-19 12:35 | NUR ---
Nutrition reassessment: Pt continues with BIPAP; unable to take off for any length of time. Diet order: consistent CHO puree with Glucerna Shake TID PO intake very poor. ProcalAmine PPN started @ 100 ml/hr Labs reviewed; K now high @ 5.3, Na: 129, Cl: 96, BUN: 42, Cr: 1.4, GFR: 53 Now with altered renal function. Ht: 5'9" Wt: 231# IBW: 160# +/-10% BMI: 34.1 Estimated nutrient needs: 7699-3372 kcal (25-35 kcal/kg IBW) 73-85 g 1.0-1.2 gm/kg (1.0-1.1 gm/kg IBW) 7487-0301 ml fluid - or per MD order Nutrition diagnosis: Continued inadequate oral intake R/T respiratory distress with BIPAP AEB continued poor po intake; < 25% of most meals. Goals: - Will meet at least 75% of estimated fluid needs without further fluid overload - Stable dry wt -10# - PO intake will increase to =/> 75% of meals, snacks - will consume at least 75% of Glucerna Shake at meals Recommendations: Stop Procalamine PPN due to elevated K and decreased renal function RDN follow-up: 01/21/21
--- NOTE | 2021-01-19 15:00 | NUR ---
ASSISTED PT ONTO BEDPAN, LARGE BM NOTED, LINENS CHANGED, REPOSITIONED FOR COMFORT, WILL MONITOR
--- NOTE | 2021-01-19 15:52 | NUR ---
OT NOTE: PT COMPLETED BED MOB TASKS WITH MAX A. PT REQUIRED MAX A FOR SUPINE TO SIT. PT TOLERATED SITTING AT EOB WITH 3 MINUTES WITH CUES FOR BREATHING TECHNIQUES. PT IS SOB WITH MINIMAL EXERTION. PT REQUIRED EXTRA TIME WITH SIMPLE TASKS SECONDARY TO SOB. [id number] THANK YOU,AMY POOLE
[2021-01-19 16:10] LABS: HEPARIN INDUCED PLATELET AB 1.148 OD (0.000-0.400)
--- NOTE | 2021-01-19 20:00 | NUR ---
PT ASSESSMENT COMPLETE. PT RESTING COMFORTABLY IN BED NO COMPLAINTS AT THIS TIME. ON BIPAP SATS 95% ON 100% FIO2. RR 30S WHILE AWAKE. PIV SITES WITHOUT COMPLICATION. IVF SWITCHED TO LEFT FOREARM FOR ANTIBIOTICS TO BE ADMINISTERED. WILL CONTINUE TO MONITOR. SEE HEAD TO TOE ASSESSMENT
[2021-01-20] VITALS (24 sets, daily range): BP systolic 111–169; BP diastolic 53–120
[2021-01-20 04:53] LABS: INR 1.54 (0.85-1.17); PROTIME 17.1 SECONDS (11.6-15.0)
[2021-01-20 05:03] LABS: BASOPHILS 0.1 % (0-2); EOSINOPHILS 0 % (0-7); HEMOGLOBIN 13.9 g/dL (13.5-17.5); IMMATURE GRANULOCYTES 1.3 % (0-5); LYMPHOCYTE ABS# 8.78 10x3/uL (1.32-3.57); LYMPHOCYTES 29.7 % (15-50); MCHC 33.1 g/dL (31.0-37.0); MCV 81.6 fL (80.0-100.0); MEAN PLATELET VOLUME 10.4 fL (7.4-10.4); MONOCYTES 2.6 % (2-11); NEUTROPHILS 66.3 % (40-80); PLATELET COUNT 139 10x3/uL (130-400); RBC 5.15 10x6/uL (4.20-6.10); RDW 13.8 % (11.5-14.5); WBC 29.6 10x3/uL (4.8-10.8)
[2021-01-20 05:11] LABS: ALBUMIN 2.3 g/dL (3.4-5.0); ANION GAP 11.6 mmol/L (8-16); BILIRUBIN - TOTAL 1.08 mg/dL (0.2-1.3); CALCIUM 8.5 mg/dL (8.5-10.1); CARBON DIOXIDE 27.5 mmol/L (21.0-32.0); CREATININE - SERUM 1.4 mg/dL (0.6-1.3); MAGNESIUM - SERUM 2.2 mg/dL (1.8-2.4); POTASSIUM - SERUM 5.1 mmol/L (3.5-5.1); PROTEIN - SERUM 6.1 g/dL (6.4-8.2)
--- NOTE | 2021-01-20 06:00 | NUR ---
PT REQUESTED A BREAK FROM BIPAP. PLACED IN 15L HFNC & 100% NRB. SATS 85-89%. PT DENIES FEELING WORSENING SOB. ALLOWED TO STAY OFF BIPAP FOR APPROX 15MINS WHEN SATS FELL BELOW 85% AND PT WAS PLACED BACK ON 100% FIO2 09/01 ON BIPAP. SATS CAME UP TO MID 90S PT RESTING COMFORTABLY. RESPIRATORY RATE 28-35 BREATHS PER MINUTE. WILL CONTINUE TO MONITOR
--- NOTE | 2021-01-20 07:00 | NUR ---
REC'D REPORT AND RESUMED CARE, AA, PULLING AT BIPAP MASK, WANTS IT OFF TO DRINK WATER, TAKEN OFF AND HF NC PLACED WITH NRB, DESATED TO THE 70'S, WATER GIVEN, BIPAP REPLACED, ASSESSMENT COMPLETED PER FLOWSHEET, DENIES PAIN, CALL LIGHT IN REACH,
--- NOTE | 2021-01-20 09:00 | NUR ---
MORNING MEDS GIVEN WITH SIPS, DESATS QUICKLY WITH BIPAP OFF, REPLACED WITHOUT SAT IN 80'S WILL CONTINUE TO MONITOR
--- NOTE | 2021-01-20 09:10 | NUR ---
DR DAS MAKING ROUNDS, NEW ORDER GIVEN FOR TPN, AND CONSULT FOR CVL PLACEMENT
--- NOTE | 2021-01-20 09:45 | NUR ---
CALLED TO ROOM, BIPAP IN USE, STATES HE NEEDS WATER, BIPAP OFF, HFNC AND NRB PLACED, TOOK ONLY A SIP OF WATER AND BIPAP BACK ON, SAT IN THE 80'S AND TRENDING UP
--- NOTE | 2021-01-20 11:00 | NUR ---
PT AT BEDSIDE, ROM COMPLETED WITHOUT DIFFICULTY
--- NOTE | 2021-01-20 13:15 | NUR ---
Nutrition reassessment: Discussed during IDT team rounds Pt on BIPAP most of the time; unable to eat consistent CHO diet Dr. Sargent ordered TPN to begin after CVL placed Ht: 5'9" Wt: 229# IBW: 160# +/-10% BMI: 33.8 Estimated nutritional needs: 6115-4779 kcal (25-30 kcal/kg AdjBW of 80 kg) 80-96 gm protein (1.0-1.2 gm/kg AdjBW) 3035-3033 ml fluid - or per MD order Pt continues with inadequate oral intake R/T BIPAP AEB very poor po intake recorded for the last week. Goals: - PO intake will increase to =/> 75% of meals, snacks - Meet at least 75% of estimated fluid needs - Stable dry wt +/-10# Interventions: TPN started today @ 40 ml/hr with 20% 250 ml intralipids Q 48 hours Will also continue to provide pt with consistent CHO diet and Glucerna Shake. Follow-up: 01/21/21
--- NOTE | 2021-01-20 13:45 | NUR ---
FAWAD BOWERRN, CVL PLACED, RIGHT IJ, WITHOUT DIFFICULTY
[2021-01-20 13:53] LABS: PHOSPHOROUS 4.3 mg/dL (2.5-4.9)
--- NOTE | 2021-01-20 19:00 | NUR ---
Report received, care assumed. Pt is resting in bed watching TV at this time. Shift assessment completed, see flowsheet for details. No s/s of distress noted. Will continue to monitor.
[2021-01-21] VITALS (26 sets, daily range): BP systolic 80–207; BP diastolic 54–136
[2021-01-21 04:55] LABS: HEMATOCRIT 42.1 % (42.0-54.0); HEMOGLOBIN 14.1 g/dL (13.5-17.5); INR 1.72 (0.85-1.17); LYMPHOCYTE ABS# 8.55 10x3/uL (1.32-3.57); MCH 27.2 pg (26.0-34.0); MCHC 33.5 g/dL (31.0-37.0); MCV 81.3 fL (80.0-100.0); MEAN PLATELET VOLUME 11.3 fL (7.4-10.4); NEUTROPHIL ABS# 24.27 10x3/uL (1.78-5.38); PLATELET COUNT 162 10x3/uL (130-400); PROTIME 18.7 SECONDS (11.6-15.0); RBC 5.18 10x6/uL (4.20-6.10); WBC 35.1 10x3/uL (4.8-10.8)
[2021-01-21 05:00] LABS: ALBUMIN 2.2 g/dL (3.4-5.0); ANION GAP 10.1 mmol/L (8-16); BILIRUBIN - TOTAL 1.31 mg/dL (0.2-1.3); CALCIUM 8.2 mg/dL (8.5-10.1); CARBON DIOXIDE 29.7 mmol/L (21.0-32.0); CREATININE - SERUM 1.3 mg/dL (0.6-1.3); MAGNESIUM - SERUM 1.9 mg/dL (1.8-2.4); POTASSIUM - SERUM 4.8 mmol/L (3.5-5.1); PROTEIN - SERUM 5.7 g/dL (6.4-8.2)
--- NOTE | 2021-01-21 08:23 | NUR ---
Nutrition follow-up: Chart and labs reviewed Pt on BIPAP; continues with very poor po intake Will continue current TPN @ 40 ml/hr RDN follow-up: 01/22/21
--- NOTE | 2021-01-21 11:08 | NUR ---
PT INTUBATED BY DR DAS. 7.5ETT, 24 AT LIP. PT DID AGREE TO INTUBATION THIS AM. STATED "GETTING HARD TO KEEP BREATHING. GETTING TIRED". PT'S CALLED AND NOTIFIED AND HIS DAUGHTER WELL.
[2021-01-21 11:22] LABS: LYMPHOCYTES 13 % (15-50); MONOCYTES 15 % (2-11); NEUTROPHILS 66 % (40-80); PLATELET ESTIMATE NORMAL
[2021-01-21 11:25] LABS: SMUDGE CELLS 1+
--- NOTE | 2021-01-21 11:42 | NUR ---
OT NOTE: OT IN TO SEE PT THIS AM. PTS 02 SATS AT 88% UPON ENTERING ROOM. PT WAS ALERT AND AGREEABLE TO SIT UP ON EOB.. PT CURRENTLY WITH BIPAP IN PLACE. NURSING REPORTS THAT PT MUST REMAIN ON BIPAP DURING TMT (THIS IS WHAT WE HAVE BEEN DOING FOR ALL PREVIOUS TMTS)..ASSISTED PT TO EOB SITTING WITH MOD ASSIST X 2. PT SITTING UP FOR ONLY ABOUT 8-10 SECONDS AND HAD TO LIE BACK DOWN. STATES THAT HIS VISION WAS GETTING DARK.. LIKE HE WAS ABOUT TO PASS OUT. READJUSTED PT UP IN BED.. ELEVATED HOB.. SATS DROPPED INTO LOW 70S..STAYED WITH PT AND ENCOURAGED SLOW BREATHING UNTIL SATS IMPROVED TO 79/80%..NURSING ALSO IN ROOM DURING THIS TIME.. REPOSITIONED PT AGAIN, HE HAD SLID DOWN IN THE BED. PT CONT TO STRUGGLE WITH BREATHING. DR SALAS IN TO SEE PT; INSTRUCTED NO MORE THERAPY AT THIS TIME. ADOLFO STREETER, OTR/L [phone]
--- NOTE | 2021-01-21 16:33 | NUR ---
CALLED [facility] TO DR DAS. AC INC TO 25BPM AND TV INCREASED TO 450 ORDERED.
[2021-01-22] VITALS (50 sets, daily range): BP systolic 83–121; BP diastolic 41–63
[2021-01-22 03:54] LABS: BASOPHILS 0.1 % (0-2); EOSINOPHILS 0 % (0-7); HEMATOCRIT 39.9 % (42.0-54.0); HEMOGLOBIN 12.2 g/dL (13.5-17.5); LYMPHOCYTE ABS# 8.76 10x3/uL (1.32-3.57); LYMPHOCYTES 26.9 % (15-50); MCH 26.5 pg (26.0-34.0); MCHC 30.6 g/dL (31.0-37.0); MCV 86.7 fL (80.0-100.0); MEAN PLATELET VOLUME 10.6 fL (7.4-10.4); MONOCYTES 3.6 % (2-11); NEUTROPHIL ABS# 21.94 10x3/uL (1.78-5.38); NEUTROPHILS 67.4 % (40-80); PLATELET COUNT 159 10x3/uL (130-400); RDW 14.1 % (11.5-14.5); WBC 32.6 10x3/uL (4.8-10.8)
[2021-01-22 04:00] LABS: INR 1.67 (0.85-1.17); PROTIME 18.3 SECONDS (11.6-15.0)
[2021-01-22 04:09] LABS: ALBUMIN 2.1 g/dL (3.4-5.0); BILIRUBIN - TOTAL 0.56 mg/dL (0.2-1.3); CALCIUM 7.5 mg/dL (8.5-10.1); CARBON DIOXIDE 29.1 mmol/L (21.0-32.0); PROTEIN - SERUM 5.3 g/dL (6.4-8.2)
[2021-01-22 04:10] LABS: MAGNESIUM - SERUM 2.4 mg/dL (1.8-2.4); PHOSPHOROUS 8.6 mg/dL (2.5-4.9)
[2021-01-22 04:11] LABS: ANION GAP 10.5 mmol/L (8-16); CREATININE - SERUM 2.5 mg/dL (0.6-1.3); POTASSIUM - SERUM 5.6 mmol/L (3.5-5.1)
--- NOTE | 2021-01-22 08:55 | NUR ---
VENT SETTINGS CHANGE FROM 25/450/12/100% TO 28/500/10/100% PER DR DAS.
--- NOTE | 2021-01-22 09:40 | NUR ---
[facility] CALLED TO DR DAS. REC'D NEW ORDERS. VENT CHANGES BY RT.
--- NOTE | 2021-01-22 11:01 | NUR ---
SPOKE TO DR CRAMER.REC'D NEW ORDERS.
--- NOTE | 2021-01-22 12:36 | NUR ---
BP 80/40. REPORTED TO DR DAS AND RENAL BASKET TURNER SERGIO. LEVOPHED AND SODIUM BICARB 2 AMPS GIVEN. 2LNS BOLUS GIVEN.
[2021-01-22 14:20] LABS: CKMB 0.7 U/L (0.0-3.6); CREATINE KINASE 53 UL (21-232)
[2021-01-22 14:22] LABS: TROPONIN-I 0.722 ng/mL (0.000-0.060)
[2021-01-22 18:44] LABS: ALBUMIN 1.9 g/dL (3.4-5.0); ANION GAP 11.6 mmol/L (8-16); BILIRUBIN - TOTAL 0.54 mg/dL (0.2-1.3); CARBON DIOXIDE 27.6 mmol/L (21.0-32.0); CREATININE - SERUM 2.5 mg/dL (0.6-1.3); POTASSIUM - SERUM 5.2 mmol/L (3.5-5.1); PROTEIN - SERUM 4.9 g/dL (6.4-8.2)
[2021-01-22 18:46] LABS: CALCIUM 6.8 mg/dL (8.5-10.1)
--- NOTE | 2021-01-22 19:05 | NUR ---
LABS CALLED TO DR CRAMER.
[2021-01-23] VITALS (78 sets, daily range): BP systolic 94–140; BP diastolic 47–78
[2021-01-23 05:08] LABS: HEMATOCRIT 38.2 % (42.0-54.0); HEMOGLOBIN 11.7 g/dL (13.5-17.5); LYMPHOCYTE ABS# 14.63 10x3/uL (1.32-3.57); MCH 26.5 pg (26.0-34.0); MCHC 30.6 g/dL (31.0-37.0); MCV 86.4 fL (80.0-100.0); MEAN PLATELET VOLUME 10.9 fL (7.4-10.4); NEUTROPHIL ABS# 22.62 10x3/uL (1.78-5.38); PLATELET COUNT 252 10x3/uL (130-400); RBC 4.42 10x6/uL (4.20-6.10); RDW 14.2 % (11.5-14.5); WBC 39.8 10x3/uL (4.8-10.8)
[2021-01-23 05:22] LABS: LYMPHOCYTES 32 % (15-50); MONOCYTES 5 % (2-11); NEUTROPHILS 58 % (40-80); PLATELET ESTIMATE NORMAL
[2021-01-23 06:03] LABS: ALBUMIN 2.1 g/dL (3.4-5.0); ANION GAP 11.3 mmol/L (8-16); BILIRUBIN - TOTAL 0.45 mg/dL (0.2-1.3); CALCIUM 7.2 mg/dL (8.5-10.1); CARBON DIOXIDE 29.1 mmol/L (21.0-32.0); CREATININE - SERUM 2.3 mg/dL (0.6-1.3); MAGNESIUM - SERUM 2.8 mg/dL (1.8-2.4); POTASSIUM - SERUM 5.4 mmol/L (3.5-5.1); VANCOMYCIN - RANDOM 20.2 ug/mL (10.0-20.0)
[2021-01-23 06:04] LABS: TROPONIN-I 0.49 ng/mL (0.000-0.060)
--- NOTE | 2021-01-23 12:01 | NUR ---
AUDIBLE AIR LEAK NOTED. RT AT BS. DR DAS AT BS. CXR VIEWED BY DR DAS. PT REINTUBATED WITH 7.5ETT 24 AT LIP LINE. CXR DONE. PT JERRY WELL.
--- NOTE | 2021-01-23 19:00 | NUR ---
BEDSIDE REPORT RECEIVED. PT SEDATED ON VENT. CVC TO RIJ. LEVOPHED INFUSING AT 3MCG/MIN, IVF @ 100ML/HR, FENTANYL AT 150MCG/HR, PROPOFOL @ 50MCG/KG/MIN. PT TOLERATING VENTILATION WITH RATE AT 28BPM. PT NOT BREATHING OVER VENTILATOR PER MD ORDER. NO ACUTE ISSUES AT THIS TIME. WILL CONTINUE TO MONITOR. SEE FULL HEAD TO TOE ASSESSMENT
--- NOTE | 2021-01-23 20:00 | NUR ---
PROPOFOL TUBING CHANGED IVF AND SECONDARY TUBING CHANGED
[2021-01-24] VITALS (79 sets, daily range): BP systolic 82–121; BP diastolic 40–515
--- NOTE | 2021-01-24 04:30 | NUR ---
TUBE FEEDING BAG CHANGED
[2021-01-24 05:25] LABS: ANION GAP 9.6 mmol/L (8-16); BILIRUBIN - TOTAL 0.42 mg/dL (0.2-1.3); CALCIUM 7.4 mg/dL (8.5-10.1); CARBON DIOXIDE 27.3 mmol/L (21.0-32.0); CREATININE - SERUM 2.2 mg/dL (0.6-1.3); POTASSIUM - SERUM 5.9 mmol/L (3.5-5.1)
[2021-01-24 05:34] LABS: BASOPHILS 0 % (0-2); EOSINOPHILS 0 % (0-7); HEMOGLOBIN 10.9 g/dL (13.5-17.5); IMMATURE GRANULOCYTES 2.5 % (0-5); LYMPHOCYTE ABS# 6.14 10x3/uL (1.32-3.57); LYMPHOCYTES 27.4 % (15-50); MCH 26.5 pg (26.0-34.0); MCHC 30.3 g/dL (31.0-37.0); MCV 87.6 fL (80.0-100.0); MEAN PLATELET VOLUME 11.2 fL (7.4-10.4); MONOCYTES 3.8 % (2-11); NEUTROPHIL ABS# 14.83 10x3/uL (1.78-5.38); NEUTROPHILS 66.3 % (40-80); PLATELET COUNT 193 10x3/uL (130-400); RBC 4.11 10x6/uL (4.20-6.10); RDW 14.5 % (11.5-14.5); WBC 22.4 10x3/uL (4.8-10.8)
--- NOTE | 2021-01-24 07:15 | NUR ---
REPORT RECEIVED. ASSESSMENT COMPLETE PER FLOW SHEET. VSS.
--- NOTE | 2021-01-24 10:32 | NUR ---
Nutrition follow-up: Intubated, sedated with propofol @ 50 mcg/kg/min Nepro infusing @ 20 ml/hr via OGT; goal rate of 40 ml/hr Labs reviewed Wt: 239# Pt tolerating TF at this time RDN follow-up: 01/26/21
[2021-01-24 17:06] LABS: ALBUMIN 2.1 g/dL (3.4-5.0); ANION GAP 13.9 mmol/L (8-16); BILIRUBIN - TOTAL 0.55 mg/dL (0.2-1.3); CALCIUM 7.7 mg/dL (8.5-10.1); CARBON DIOXIDE 26.2 mmol/L (21.0-32.0); CREATININE - SERUM 2.2 mg/dL (0.6-1.3); PROTEIN - SERUM 5.1 g/dL (6.4-8.2)
[2021-01-24 17:08] LABS: POTASSIUM - SERUM 6.1 mmol/L (3.5-5.1)
--- NOTE | 2021-01-24 17:26 | NUR ---
CRITICAL POTASSIUM CALLED TO DR. OBANDO, NEW ORDERS RECIEVED
--- NOTE | 2021-01-24 19:00 | NUR ---
BEDSIDE REPORT RECEIVED. PT SEDATED ON VENT. SEE HEAD TO TOE ASSESSMENT PER FLOWSHEET. SEE IV GTT RATES PER IV FLOW SHEET. RESTRAINTS IN PLACE AND APPLIED PROPERLY. NO ACUTE ISSUES NOTED AT THIS TIME. WILL CONTINUE TO MONITOR.
[2021-01-24 20:12] LABS: ANION GAP 12.3 mmol/L (8-16); BILIRUBIN - TOTAL 0.45 mg/dL (0.2-1.3); CALCIUM 7.5 mg/dL (8.5-10.1); CARBON DIOXIDE 26.5 mmol/L (21.0-32.0); CREATININE - SERUM 2.1 mg/dL (0.6-1.3); POTASSIUM - SERUM 5.8 mmol/L (3.5-5.1); PROTEIN - SERUM 4.8 g/dL (6.4-8.2)
--- NOTE | 2021-01-24 20:30 | NUR ---
SPOKE WITH DR. OBANDO. NOTIFIED OF 1999 CMP RESULTS. K LEVEL 5.8 ORDERS ENTERED FOLLOWS: KAYEXELATE NGT 30GM X1 LASIX 60MG IV X1 ALBUMIN 50GM IVPB X1 NS 500ML BOLUS X1 10 UNITS IVP REGULAR INSULIN X1 NOTIFIED OF 2099 DOSE OF 20 UNITS LANTUS AND MEDIUM SLIDING SCALE TO BE GIVEN WELL. OK WITH SQ ADMINISTRATION ALONG WITH IVP DOSE. UPDATED ON URINE OUTPUT AND VITALS. MD REQUESTED AM LABS BE DONE AT 0300 AND PLEASE CALL MD WITH RESULTS
[2021-01-25] VITALS (87 sets, daily range): BP systolic 87–115; BP diastolic 44–59
[2021-01-25 03:43] LABS: HEMATOCRIT 33.7 % (42.0-54.0); HEMOGLOBIN 10.2 g/dL (13.5-17.5); MCH 26.4 pg (26.0-34.0); MCHC 30.3 g/dL (31.0-37.0); MCV 87.1 fL (80.0-100.0); MEAN PLATELET VOLUME 11.2 fL (7.4-10.4); NEUTROPHIL ABS# 16.53 10x3/uL (1.78-5.38); PLATELET COUNT 238 10x3/uL (130-400); RBC 3.87 10x6/uL (4.20-6.10); RDW 14.7 % (11.5-14.5); WBC 27.7 10x3/uL (4.8-10.8)
[2021-01-25 03:56] LABS: ANION GAP 15.2 mmol/L (8-16); BILIRUBIN - TOTAL 0.53 mg/dL (0.2-1.3); CALCIUM 7.4 mg/dL (8.5-10.1); CARBON DIOXIDE 26.4 mmol/L (21.0-32.0); POTASSIUM - SERUM 5.6 mmol/L (3.5-5.1); PROTEIN - SERUM 5.3 g/dL (6.4-8.2)
--- NOTE | 2021-01-25 04:00 | NUR ---
TUBE FEEDING BAG CHANGED
[2021-01-25 04:01] LABS: ALBUMIN 2.8 g/dL (3.4-5.0)
[2021-01-25 04:18] LABS: LYMPHOCYTES 36 % (15-50); NEUTROPHILS 64 % (40-80); PLATELET ESTIMATE NORMAL
--- NOTE | 2021-01-25 04:25 | NUR ---
DR. OBANDO NOTIFIED OF AM LABS. SEE ORDERS FOR 10UNITS IV REGULAR INSULIN X1. 40MG IV LASIX X1
--- NOTE | 2021-01-25 19:00 | NUR ---
BEDSIDE REPORT COMPLETE. PT SEDATED ON VENT. VENT A/C 500/28/10/60% RIJ CVC WITH NS @ 10ML/HR, PROPOFOL @ 55MCG/KG/MIN, FENTANYL @ 200MCG/HR, AND LEVOPHED @ 3MCG/MIN ALL INFUSING WITHOUT COMPLICATION. PT REPORSITIONED IN BED. CARRIER CREAM APPLIED TO BUTTOCKS AND SACRUM. HEAD TO TOE ASSESSMENT COMPLETE PER FLOWSHEET SEE DOCUMENTATION. WILL CONTINUE TO MONITOR
--- NOTE | 2021-01-25 22:30 | NUR ---
CVP LINE AND FLUSH BAG CHANGED. PROPOFOL TUBING CHANGED FENTANYL TUBING CHANGED
[2021-01-26] VITALS (59 sets, daily range): BP systolic 90–113; BP diastolic 45–58
--- NOTE | 2021-01-26 04:00 | NUR ---
COMPLETE BED BATH AND LINEN CHANGE. CHG BATH DONE TUBE FEEDING BAG CHANGED
[2021-01-26 04:40] LABS: BASOPHILS 0.1 % (0-2); EOSINOPHILS 0 % (0-7); HEMATOCRIT 33.7 % (42.0-54.0); HEMOGLOBIN 10.1 g/dL (13.5-17.5); IMMATURE GRANULOCYTES 3.6 % (0-5); LYMPHOCYTE ABS# 7.36 10x3/uL (1.32-3.57); LYMPHOCYTES 28.1 % (15-50); MCH 26.2 pg (26.0-34.0); MCV 87.5 fL (80.0-100.0); MEAN PLATELET VOLUME 11.2 fL (7.4-10.4); MONOCYTES 3.3 % (2-11); NEUTROPHIL ABS# 17.01 10x3/uL (1.78-5.38); NEUTROPHILS 64.9 % (40-80); PLATELET COUNT 223 10x3/uL (130-400); RBC 3.85 10x6/uL (4.20-6.10); RDW 15.2 % (11.5-14.5); WBC 26.2 10x3/uL (4.8-10.8)
[2021-01-26 04:50] LABS: ALBUMIN 2.6 g/dL (3.4-5.0); BILIRUBIN - TOTAL 0.76 mg/dL (0.2-1.3); CALCIUM 7.4 mg/dL (8.5-10.1); CARBON DIOXIDE 25.4 mmol/L (21.0-32.0); CREATININE - SERUM 2.5 mg/dL (0.6-1.3); PROTEIN - SERUM 5.2 g/dL (6.4-8.2); VANCOMYCIN - RANDOM 24.4 ug/mL (10.0-20.0)
--- NOTE | 2021-01-26 05:00 | NUR ---
STERILE CVC DRESSING CHANGE COMPLETED. PRN ADAPTERS CHANGED WELL.
[2021-01-26 05:02] LABS: ANION GAP 14.8 mmol/L (8-16); POTASSIUM - SERUM 6.2 mmol/L (3.5-5.1)
--- NOTE | 2021-01-26 05:05 | NUR ---
NOTIFIED DR. OBANDO NOTIFIED OF CRITICAL LABS. CO2 41.1, BUN 114, K 6.2. PT GIVEN 40IV LASIX AT 0500. UPDATED ON MEDS GIVEN. DOSES OF KAYEXALATE AND PT HAS NOT HAD A BM. SEE IV ORDERS ENTERED 40MG IV LASIX X1 10 UNITS REGULAR INSULIN IV X1 STATED SHE WILL PROBABLY START DIALYSIS TODAY.
--- NOTE | 2021-01-26 12:31 | NUR ---
Nutrition follow-up: Discussed during IDT team rounds Intubated, sedated with propofol @ 60 mcg/kg/min - 41.2 ml/hr Nepro infusing via OGT @ 20 ml/hr->goal rate 40 ml/hr Wt: 252# Labs reviewed; BUN: 114, Cr: 2.5, K: 6.2 Last BM charted 01/21/21; Leigh stated 01/25/21 Pt tolerating TF at this time RDN will monitor TF tolerance as advanced toward goal rate Follow-up: 01/28/21
[2021-01-26 15:48] LABS: ANION GAP 13.3 mmol/L (8-16); CALCIUM 7.4 mg/dL (8.5-10.1); CARBON DIOXIDE 26.8 mmol/L (21.0-32.0); CREATININE - SERUM 2.7 mg/dL (0.6-1.3)
[2021-01-26 15:51] LABS: POTASSIUM - SERUM 6.1 mmol/L (3.5-5.1)
--- NOTE | 2021-01-26 19:29 | NUR ---
1913-NOTIFIED DR. ADEN ABOUT XRAY RESULTS. AWARE. ORDERED TO CHECK TRIALYSIS CATHETER TO ENSURE THAT BLOOD RETURN CAME FROM EACH PORT, IF THERE WAS BLOOD RETURN IT WAS OK TO USE. IF NOT, CALL BACK. 1922-CHECKED CATHETER AND RECEIVED BLOOD RETURN FROM ALL 3 PORTS.
[2021-01-27] VITALS (93 sets, daily range): BP systolic 80–142; BP diastolic 42–87
[2021-01-27 05:56] LABS: BASOPHILS 0.1 % (0-2); EOSINOPHILS 0 % (0-7); IMMATURE GRANULOCYTES 4.4 % (0-5); LYMPHOCYTES 29.5 % (15-50); MCH 26.2 pg (26.0-34.0); MCHC 30.3 g/dL (31.0-37.0); MCV 86.4 fL (80.0-100.0); MEAN PLATELET VOLUME 11.2 fL (7.4-10.4); MONOCYTES 3.5 % (2-11); NEUTROPHIL ABS# 17.36 10x3/uL (1.78-5.38); NEUTROPHILS 62.5 % (40-80); PLATELET COUNT 231 10x3/uL (130-400); RBC 3.82 10x6/uL (4.20-6.10); RDW 15.4 % (11.5-14.5); WBC 27.8 10x3/uL (4.8-10.8)
[2021-01-27 06:11] LABS: CALCIUM 7.7 mg/dL (8.5-10.1); CREATININE - SERUM 3.2 mg/dL (0.6-1.3); VANCOMYCIN - RANDOM 18.7 ug/mL (10.0-20.0)
--- NOTE | 2021-01-27 06:19 | NUR ---
SPOKE TO DR OBANDO ABOUT PATIENTS CRITICAL LABS THIS AM. ORDERED 1G OF CALCIUM GLUCONATE AND 10 UNITS OF REGULAR INSULIN IV.
[2021-01-27 13:28] LABS: ALBUMIN 2.5 g/dL (3.4-5.0); BILIRUBIN - TOTAL 0.7 mg/dL (0.2-1.3); CALCIUM 7.3 mg/dL (8.5-10.1); CARBON DIOXIDE 28.8 mmol/L (21.0-32.0); PROTEIN - SERUM 5.3 g/dL (6.4-8.2)
[2021-01-27 13:29] LABS: ANION GAP 11.5 mmol/L (8-16); POTASSIUM - SERUM 4.3 mmol/L (3.5-5.1)
[2021-01-28] VITALS (93 sets, daily range): BP systolic 89–170; BP diastolic 48–90
--- NOTE | 2021-01-28 01:00 | NUR ---
Paged on-call for Cardiology and notified them of patient's heart rate dropping down to 53 at the lowest even after sedation was held. No orders were given. Will continue to monitor.
[2021-01-28 04:34] LABS: ANION GAP 14.5 mmol/L (8-16); CALCIUM 7.2 mg/dL (8.5-10.1); CARBON DIOXIDE 27.8 mmol/L (21.0-32.0); HEMATOCRIT 32.5 % (42.0-54.0); HEMOGLOBIN 10.1 g/dL (13.5-17.5); LYMPHOCYTES 28.3 % (15-50); MCH 26.9 pg (26.0-34.0); MCHC 31.1 g/dL (31.0-37.0); MCV 86.7 fL (80.0-100.0); MEAN PLATELET VOLUME 10.6 fL (7.4-10.4); NEUTROPHILS 68.8 % (40-80); PLATELET COUNT 241 10x3/uL (130-400); RBC 3.75 10x6/uL (4.20-6.10); RDW 15.1 % (11.5-14.5); VANCOMYCIN - RANDOM 14.2 ug/mL (10.0-20.0); WBC 24.8 10x3/uL (4.8-10.8)
[2021-01-28 04:47] LABS: CREATININE - SERUM 2.8 mg/dL (0.6-1.3); POTASSIUM - SERUM 5.3 mmol/L (3.5-5.1)
--- NOTE | 2021-01-28 05:54 | NUR ---
Spoke to Dr. Ivan this morning concerning BUN level of 105. She ordered a Creatinine Klinase as well as a phosphorous level to be collected. Called lab and they were able to use the specimens that were already collected. Dr. Ivan stated that they will review the new labs today and may perform dialysis again today.
--- NOTE | 2021-01-28 06:01 | NUR ---
Patient began to lightly ooze blood from around trialysis port again.Patient also experienced bleeding on previous shift. redressed it patiient is current not oozing.
--- NOTE | 2021-01-28 06:08 | NUR ---
Patient has not been able to tolerate very much movement without becoming bradycardic.
--- NOTE | 2021-01-28 06:26 | NUR ---
Propofol has been titrated down to 20mcg/hr and levophed is now at 2.5 mcg.
[2021-01-28 06:46] LABS: CREATINE KINASE 243 UL (21-232)
[2021-01-28 06:55] LABS: PHOSPHOROUS 9.8 mg/dL (2.5-4.9)
--- NOTE | 2021-01-28 07:09 | NUR ---
Nutrition follow-up: Dialysis started 01/27/21 Possible dialysis again today Intubated, sedated with propofol @ 20 mcg/kg/min NGT->Nepro @ 20 ml/hr with no order to advance Labs reviewed: K: 5.3, PO4: 9.8 Wt: 271# Recommend advancing Nepro to goal rate of 50 ml/hr when medically feasible RDN reassessment: 01/31/21
--- NOTE | 2021-01-28 10:15 | NUR ---
HD BEGAN BY DIALYSIS NURSE, VSS CONTINUES ON VENT WITH 65% FIO2 ANF S PEEP OF 12.
[2021-01-28 11:11] LABS: HEPATITIS C ANTIBODY <0.1 S/CO RAT (0.0-0.9)
--- NOTE | 2021-01-28 13:00 | NUR ---
HD STOPPED, TECH HAVING TROUBLE WITH LINE, 1733 OF VS: 108/58, 72, 98.8
--- NOTE | 2021-01-28 15:36 | NUR ---
AFTER DIALYSIS, FIO2 WAS DROPPED TO 45% DUE TO SPO2 OF 100% CONSISTENTLY.
--- NOTE | 2021-01-28 15:38 | NUR ---
DUONG CATHETER CHANGED USING STERILE TECHNIQUE. INSERTED 18 FR WITH RETURN OF 15CC DARK BROWN THICK URINE.
--- NOTE | 2021-01-28 15:40 | NUR ---
RIGHT IJ AND LEFT TRIALYSIS CATH DRESSING CHANGES PERFORMED USING STERILE TECHNIQUE.
--- NOTE | 2021-01-28 17:00 | NUR ---
DAUGHTER AT BEDSIDE, STATUS UPDATE GIVEN, STATED THAT SHE WILL BRING TO SEE PATIENT ON SUNDAY.
[2021-01-29] VITALS (83 sets, daily range): BP systolic 80–137; BP diastolic 40–78
[2021-01-29 04:50] LABS: BASOPHILS 0.1 % (0-2); EOSINOPHILS 0.1 % (0-7); HEMATOCRIT 32.3 % (42.0-54.0); HEMOGLOBIN 9.9 g/dL (13.5-17.5); IMMATURE GRANULOCYTES 3.5 % (0-5); LYMPHOCYTE ABS# 7.03 10x3/uL (1.32-3.57); LYMPHOCYTES 30.7 % (15-50); MCHC 30.7 g/dL (31.0-37.0); MCV 84.8 fL (80.0-100.0); MEAN PLATELET VOLUME 10.6 fL (7.4-10.4); MONOCYTES 6.8 % (2-11); NEUTROPHILS 58.8 % (40-80); PLATELET COUNT 221 10x3/uL (130-400); RBC 3.81 10x6/uL (4.20-6.10); RDW 15.4 % (11.5-14.5); WBC 22.9 10x3/uL (4.8-10.8)
[2021-01-29 05:25] LABS: ANION GAP 15.2 mmol/L (8-16); CALCIUM 7.3 mg/dL (8.5-10.1); CARBON DIOXIDE 26.7 mmol/L (21.0-32.0); CREATININE - SERUM 3.4 mg/dL (0.6-1.3); POTASSIUM - SERUM 4.9 mmol/L (3.5-5.1); VANCOMYCIN - RANDOM 14.9 ug/mL (10.0-20.0)
--- NOTE | 2021-01-29 10:38 | NUR ---
0700 REPORT RECIEVED AND CARE ASSUMED OF PATIENT... SEE FLOW SHEET FOR SHIFT ASSESMENT FINDINGS.. 0800 ORDC IN TO SEE PATIENT.. [address]ESS.. DR WOOD IN TO SEE APTIENT AND UPDATE IS GIVEN... 1045 DR HELM IN TO SEE PATIENT
--- NOTE | 2021-01-29 11:44 | NUR ---
1100 DR HELM IN TO SEE PATIENT.. 1130 DIALYSIS CATH NOT WORKING.. DIALYSIS NURSE HAS ORDERED ALTEPASE FOR PORT.
--- NOTE | 2021-01-29 14:56 | NUR ---
CVP AROUND 10 AND WILL DECREASE PROPOFOL AND FENTANYL DRIP TO SEE IF IT WILL HELP WITH THE HEART RATE.
--- NOTE | 2021-01-29 18:26 | NUR ---
1330 DIALYSIS NURSE HERE AND INSTILLED ALTOAPASE IN CATHETER STATED THAT DIALYSIS NURSE WOULD BE IN LATER TO HD PATIENT.. 1530 I AND O DONE 1630 DRESSING ON LEFT NECK REINFORCED AT THIS TIME OOZING AT SITE.. . 1700 HR INCREASED TO 124 AND SAT HAS DROPPED TO 88.. RT CALLED AND O2 INCREASED AT THIS TIME.. HR DROPPED TO 110
--- NOTE | 2021-01-29 19:09 | NUR ---
0 HD NURSE STATES THAT HD LINE DOES NOT DRAW SHE CALLED DR SAUL AND INFORMED HIM..
[2021-01-30] VITALS (84 sets, daily range): BP systolic 79–151; BP diastolic 41–86
--- NOTE | 2021-01-30 | NUR ---
Levophed titrated down to 1.5 mcg successfully. Will continue to monitor.
--- NOTE | 2021-01-30 00:31 | NUR ---
Updated patient's on patient's status and plan of care.
[2021-01-30 06:01] LABS: HEMATOCRIT 29.6 % (42.0-54.0); HEMOGLOBIN 9.3 g/dL (13.5-17.5); LYMPHOCYTE ABS# 5.18 10x3/uL (1.32-3.57); MCH 26.4 pg (26.0-34.0); MCHC 31.4 g/dL (31.0-37.0); MCV 84.1 fL (80.0-100.0); NEUTROPHIL ABS# 14.35 10x3/uL (1.78-5.38); PLATELET COUNT 181 10x3/uL (130-400); RBC 3.52 10x6/uL (4.20-6.10); RDW 15.3 % (11.5-14.5); WBC 20.9 10x3/uL (4.8-10.8)
[2021-01-30 06:04] LABS: CALCIUM 7.2 mg/dL (8.5-10.1); CARBON DIOXIDE 26.7 mmol/L (21.0-32.0); POTASSIUM - SERUM 4.7 mmol/L (3.5-5.1); VANCOMYCIN - RANDOM 13.7 ug/mL (10.0-20.0)
[2021-01-30 06:37] LABS: LYMPHOCYTES 26 % (15-50); NEUTROPHILS 74 % (40-80); PLATELET ESTIMATE NORMAL; TEAR DROP CELLS OCC
--- NOTE | 2021-01-30 06:47 | NUR ---
Patient given full bath.
[2021-01-30 06:59] LABS: CREATININE - SERUM 4.3 mg/dL (0.6-1.3)
--- NOTE | 2021-01-30 13:38 | NUR ---
0700 REPORT RECIEVED AND CARE ASSUMED OF THE PATIENT.. SEE FLOW SHEET FOR SHIFT ASSESMENT FINDINFS.. 0800 DR WOOD IN TO SEE PATIENT UPDATE IS GIVEN.. 0900 MEDS GIVEN.. 0930 DR WOOD BACK IN UNIT .. STATED THAT HE IS THINKING PATIENT WILL NEED A TRACH IN THE NEAR FUTURE 1000 RENAL OPERATION SHIFT SUPERVISOR FELISHA IN TO SEE PATIENT UPDATEE IS GIVEN.. 1100 DR LEDESMA IN UNIT UPDATE IS GIVEN.. NO ORDERS RECIEVED.. 1230 DR SAUL IN TO SEE PATIENT.. UPDATE IS GIVEN.. CHANGES IN ORDERS FROM OPERATION SHIFT SUPERVISOR MADE BY HIM.. 1300 ATTEMP TO WEAN SEDATION PATIENT HAD SAMAE REACTION PREVIOUS DAY WHEN SEDATION HR INCREASE AND O2SAT DECREASE.. RT IN UNIT AND SHE INCREASES FIO2 UNTIL PATIENT STABILIZED HR RETURN AND SAT >[id number] REPORT RECIEVED AND CARE ASSUMED OF THE PATIENT.. SEE FLOW SHEET FOR SHIFT ASSESMENT FINDINFS.. 0800 DR WOOD IN TO SEE PATIENT UPDATE IS GIVEN.. 0900 MEDS GIVEN.. 0930 DR WOOD BACK IN UNIT .. STATED THAT HE IS THINKING PATIENT WILL NEED A TRACH IN THE NEAR FUTURE 1000 RENAL OPERATION SHIFT SUPERVISOR FELISHA IN TO SEE PATIENT UPDATEE IS GIVEN.. 1100 DR LEDESMA IN UNIT UPDATE IS GIVEN.. NO ORDERS RECIEVED.. 1230 DR SAUL IN TO SEE PATIENT.. UPDATE IS GIVEN.. CHANGES IN ORDERS FROM OPERATION SHIFT SUPERVISOR MADE BY HIM.. 1300 ATTEMP TO WEAN SEDATION PATIENT HAD SAMAE REACTION PREVIOUS DAY WHEN SEDATION HR INCREASE AND O2SAT DECREASE.. RT IN UNIT AND SHE INCREASES FIO2 UNTIL PATIENT STABILIZED HR RETURN AND SAT >90
--- NOTE | 2021-01-30 17:07 | NUR ---
1500 DR ADEN CONSULTED CALLED AND INFORMED OF CONSULT 1600 AND DAUGHTER IN TO SEE PATIENT.. UPDATE GIVEN AND CONSENTS SIGNED BY FOR TRACH , AND PERM DIALYSIS CATH TO BE PUT IN BY DR ADEN IN THE OR 01-31-21 1710 FAMILY GONE FROM THE BEDSIDE..
[2021-01-31] VITALS (80 sets, daily range): BP systolic 86–123; BP diastolic 43–65
[2021-01-31 03:47] LABS: BASOPHILS 0 % (0-2); EOSINOPHILS 0 % (0-7); HEMOGLOBIN 8.1 g/dL (13.5-17.5); IMMATURE GRANULOCYTES 1.4 % (0-5); LYMPHOCYTE ABS# 4.07 10x3/uL (1.32-3.57); LYMPHOCYTES 19.6 % (15-50); MCH 26.4 pg (26.0-34.0); MCHC 31.2 g/dL (31.0-37.0); MCV 84.7 fL (80.0-100.0); MEAN PLATELET VOLUME 10.5 fL (7.4-10.4); MONOCYTES 3.7 % (2-11); NEUTROPHIL ABS# 15.66 10x3/uL (1.78-5.38); NEUTROPHILS 75.3 % (40-80); PLATELET COUNT 150 10x3/uL (130-400); RBC 3.07 10x6/uL (4.20-6.10); RDW 15.3 % (11.5-14.5); WBC 20.8 10x3/uL (4.8-10.8)
[2021-01-31 04:00] LABS: CARBON DIOXIDE 24.4 mmol/L (21.0-32.0); CREATININE - SERUM 5.3 mg/dL (0.6-1.3)
[2021-01-31 04:28] LABS: ANION GAP 17.2 mmol/L (8-16); POTASSIUM - SERUM 5.6 mmol/L (3.5-5.1)
[2021-01-31 04:31] LABS: CALCIUM 6.7 mg/dL (8.5-10.1)
--- NOTE | 2021-01-31 04:56 | NUR ---
Lab called to notify me critical calcium. Discussed it the attending PRESIDING JUDGE. Patient is awaiting dialysis and nephrology is attempting to treat electrolyte imbalances as well as getting the BUN/Creatinine levels under control.
--- NOTE | 2021-01-31 07:00 | NUR ---
REPORT RECEIVED. ASSESSMENT COMPLETE PER FLOW SHEET. VSS. PT RESTING COMFORT. DR ROSARIO AT BEDSIDE GIVEN UDPATE.
--- NOTE | 2021-01-31 07:27 | NUR ---
DR SAUL AT BEDSIDE GIVEN UDPATE REGARUDING POTASSIUM. STATED OKAY. NO NEW ORDERS
--- NOTE | 2021-01-31 09:15 | NUR ---
Nutrition follow-up: Pt currently NPO for trach, hemosplit placement today Labs reviewed Wt: 270# Recommend restarting Nepro @ goal rate of 50 ml/hr RDN follow-up: 02/02/21
--- NOTE | 2021-01-31 20:37 | NUR ---
NG TUBE PLACED IN RIGHT KOTHARI, PLACMENT VERIFED ON AUSCULTATION.
[2021-02-01] VITALS (88 sets, daily range): BP systolic 85–108; BP diastolic 45–77
[2021-02-01 04:59] LABS: BASOPHILS 0 % (0-2); HEMATOCRIT 27.7 % (42.0-54.0); HEMOGLOBIN 8.7 g/dL (13.5-17.5); IMMATURE GRANULOCYTES 1.5 % (0-5); LYMPHOCYTE ABS# 4.07 10x3/uL (1.32-3.57); LYMPHOCYTES 16.8 % (15-50); MCH 26.3 pg (26.0-34.0); MCHC 31.4 g/dL (31.0-37.0); MCV 83.7 fL (80.0-100.0); MEAN PLATELET VOLUME 10.5 fL (7.4-10.4); MONOCYTES 3.6 % (2-11); NEUTROPHIL ABS# 18.69 10x3/uL (1.78-5.38); NEUTROPHILS 77.1 % (40-80); PLATELET COUNT 160 10x3/uL (130-400); RBC 3.31 10x6/uL (4.20-6.10); RDW 15.6 % (11.5-14.5); WBC 24.3 10x3/uL (4.8-10.8)
[2021-02-01 05:21] LABS: ALBUMIN 2.1 g/dL (3.4-5.0); BILIRUBIN - TOTAL 1.16 mg/dL (0.2-1.3); CARBON DIOXIDE 23.6 mmol/L (21.0-32.0); CREATININE - SERUM 4.2 mg/dL (0.6-1.3); MAGNESIUM - SERUM 2.2 mg/dL (1.8-2.4); PROTEIN - SERUM 5.3 g/dL (6.4-8.2)
[2021-02-01 05:43] LABS: ANION GAP 18.9 mmol/L (8-16); POTASSIUM - SERUM 4.5 mmol/L (3.5-5.1)
[2021-02-01 05:44] LABS: CALCIUM 6.8 mg/dL (8.5-10.1)
--- NOTE | 2021-02-01 06:30 | NUR ---
I have reviewed this patient and I concur with the Shift Assessment completed by the Licensed Practical Nurse today this shift.
--- NOTE | 2021-02-01 07:30 | NUR ---
PT REPOSITIONED, NO ACUTE DISTRESS NOTED, WILL MONITOR
--- NOTE | 2021-02-01 11:30 | NUR ---
DR DAS HERE SEEING PATIENT
--- NOTE | 2021-02-01 12:35 | NUR ---
TUBE FEEDS RESTARTED AT THIS TIME VIA NG TUBE, PLACEMENT VERIFIED WITH AIR BOLUS, NEPRO AT 10ML/HR STARTED
--- NOTE | 2021-02-01 16:30 | NUR ---
DIPROVAN DECREASED TO 20MCG/KG/MIN PER DR OBANDO
--- NOTE | 2021-02-01 16:40 | NUR ---
DAUGHTER AT BEDSIDE
--- NOTE | 2021-02-01 17:00 | NUR ---
PT STARTED ON DILAYSIS AT THIS TIME
[2021-02-02] VITALS (90 sets, daily range): BP systolic 68–148; BP diastolic 35–73
[2021-02-02 06:12] LABS: HEMATOCRIT 29.3 % (42.0-54.0); HEMOGLOBIN 8.9 g/dL (13.5-17.5); LYMPHOCYTE ABS# 2.99 10x3/uL (1.32-3.57); MCH 25.8 pg (26.0-34.0); MCHC 30.4 g/dL (31.0-37.0); MCV 84.9 fL (80.0-100.0); MEAN PLATELET VOLUME 11.2 fL (7.4-10.4); NEUTROPHIL ABS# 18.32 10x3/uL (1.78-5.38); PLATELET COUNT 192 10x3/uL (130-400); RBC 3.45 10x6/uL (4.20-6.10); WBC 22.9 10x3/uL (4.8-10.8)
[2021-02-02 06:38] LABS: ANION GAP 26.1 mmol/L (8-16); CALCIUM 7.3 mg/dL (8.5-10.1); CARBON DIOXIDE 18.7 mmol/L (21.0-32.0); CREATININE - SERUM 3.6 mg/dL (0.6-1.3); POTASSIUM - SERUM 4.8 mmol/L (3.5-5.1)
--- NOTE | 2021-02-02 09:10 | NUR ---
DR DAS HERE SEEING PATIENT
--- NOTE | 2021-02-02 10:14 | NUR ---
TUBE FEEDS INCREASED TO 30ML/HR, RESIDUAL 5ML
[2021-02-02 11:25] LABS: ANISOCYTOSIS OCC; LYMPHOCYTES 10 % (15-50); MONOCYTES 6 % (2-11); NEUTROPHILS 84 % (40-80); PLATELET ESTIMATE NORMAL; ROULEAUX OCC
--- NOTE | 2021-02-02 11:38 | NUR ---
PT STARTED ON DILAYSIS AT THIS TIME
--- NOTE | 2021-02-02 12:18 | NUR ---
Nutrition folow-up: Pt with trach to vent; propofol 20 mcg/kg/min Nepro @ 20 ml/hr; goal rate 40 ml/hr; considering PEG tube placement Wt: 263# Labs reviewed Pt tolerating TF at this time RDN follow-up: 02/04/21
--- NOTE | 2021-02-02 18:17 | NUR ---
and daughter at bedside
[2021-02-03] VITALS (91 sets, daily range): BP systolic 83–133; BP diastolic 43–73
[2021-02-03 05:24] LABS: BASOPHILS 0.1 % (0-2); EOSINOPHILS 1.1 % (0-7); HEMATOCRIT 25.7 % (42.0-54.0); HEMOGLOBIN 8.1 g/dL (13.5-17.5); LYMPHOCYTE ABS# 3.45 10x3/uL (1.32-3.57); LYMPHOCYTES 18.8 % (15-50); MCH 26.3 pg (26.0-34.0); MCHC 31.5 g/dL (31.0-37.0); MCV 83.4 fL (80.0-100.0); MEAN PLATELET VOLUME 10.9 fL (7.4-10.4); MONOCYTES 6.1 % (2-11); NEUTROPHIL ABS# 13.35 10x3/uL (1.78-5.38); NEUTROPHILS 72.9 % (40-80); PLATELET COUNT 171 10x3/uL (130-400); RBC 3.08 10x6/uL (4.20-6.10); WBC 18.3 10x3/uL (4.8-10.8)
[2021-02-03 05:40] LABS: ANION GAP 19.2 mmol/L (8-16); CALCIUM 7.3 mg/dL (8.5-10.1); CREATININE - SERUM 4.2 mg/dL (0.6-1.3); POTASSIUM - SERUM 4.4 mmol/L (3.5-5.1)
[2021-02-03 05:49] LABS: CARBON DIOXIDE 24.2 mmol/L (21.0-32.0)
--- NOTE | 2021-02-03 09:10 | NUR ---
DR DAS HERE SEEING PATIENT
--- NOTE | 2021-02-03 09:39 | NUR ---
PT STARTED ON DIALYSIS AT THIS TIME
--- NOTE | 2021-02-03 10:00 | NUR ---
DILAYSIS STOPPED AT THIS TIME DUE TO HEART RATE BEING [address]ANDO, WILL MONITOR
--- NOTE | 2021-02-03 16:00 | NUR ---
DR OBANDO HERE SEEING PATIENT
--- NOTE | 2021-02-03 17:43 | NUR ---
FAMILY AT BEDSIDE
[2021-02-04] VITALS (91 sets, daily range): BP systolic 80–144; BP diastolic 46–76
[2021-02-04 04:26] LABS: BASOPHILS 0.1 % (0-2); EOSINOPHILS 1.2 % (0-7); HEMOGLOBIN 7.7 g/dL (13.5-17.5); IMMATURE GRANULOCYTES 2.1 % (0-5); LYMPHOCYTE ABS# 3.95 10x3/uL (1.32-3.57); MCH 26.1 pg (26.0-34.0); MCHC 30.8 g/dL (31.0-37.0); MCV 84.7 fL (80.0-100.0); MEAN PLATELET VOLUME 10.3 fL (7.4-10.4); MONOCYTES 7.4 % (2-11); NEUTROPHILS 67.2 % (40-80); PLATELET COUNT 153 10x3/uL (130-400); RBC 2.95 10x6/uL (4.20-6.10)
[2021-02-04 06:41] LABS: CARBON DIOXIDE 29.1 mmol/L (21.0-32.0); CREATININE - SERUM 4.8 mg/dL (0.6-1.3)
[2021-02-04 06:42] LABS: ANION GAP 12.6 mmol/L (8-16); POTASSIUM - SERUM 3.7 mmol/L (3.5-5.1)
[2021-02-04 06:43] LABS: CALCIUM 6.9 mg/dL (8.5-10.1)
--- NOTE | 2021-02-04 10:20 | NUR ---
Nutrition follow-up: Pt discussed during IDT team rounds Intubated, sedated with propofol @ 15.8 ml/hr Dialysis today if pt can tolerate Labs reviewed Wt: 270# RDN follow-up: 02/07/21
[2021-02-05] VITALS (59 sets, daily range): BP systolic 59–114; BP diastolic 36–90
[2021-02-05 05:13] LABS: BASOPHILS 0.1 % (0-2); EOSINOPHILS 2.5 % (0-7); HEMATOCRIT 23.7 % (42.0-54.0); IMMATURE GRANULOCYTES 1.9 % (0-5); LYMPHOCYTE ABS# 2.73 10x3/uL (1.32-3.57); LYMPHOCYTES 15.5 % (15-50); MCH 26.3 pg (26.0-34.0); MCHC 30.8 g/dL (31.0-37.0); MCV 85.3 fL (80.0-100.0); MEAN PLATELET VOLUME 9.8 fL (7.4-10.4); MONOCYTES 6.2 % (2-11); NEUTROPHIL ABS# 13.03 10x3/uL (1.78-5.38); NEUTROPHILS 73.8 % (40-80); PLATELET COUNT 139 10x3/uL (130-400); RBC 2.78 10x6/uL (4.20-6.10); RDW 16.1 % (11.5-14.5); WBC 17.7 10x3/uL (4.8-10.8)
[2021-02-05 05:15] LABS: HEMOGLOBIN 7.3 g/dL (13.5-17.5)
[2021-02-05 05:22] LABS: ANION GAP 10.2 mmol/L (8-16); CALCIUM 7.4 mg/dL (8.5-10.1); CARBON DIOXIDE 31.2 mmol/L (21.0-32.0); CREATININE - SERUM 3.7 mg/dL (0.6-1.3); POTASSIUM - SERUM 3.4 mmol/L (3.5-5.1)
--- NOTE | 2021-02-05 07:19 | NUR ---
REPORT RECIEVED. PLAN OF CARE ASSUMED. SEE FLOWSHEET FOR ASSESSMENT FINDINGS.
--- NOTE | 2021-02-05 13:30 | NUR ---
FAMILY AT BEDSIDE AT THIS TIME. CONFIRMED WANTING TERMINAL EXTUBATION. MADE AWARE. EXPLAINED PROCEDURE TO FAMILY, ALL UNDERSTAND AND AGREE.
--- NOTE | 2021-02-05 14:30 | NUR ---
MORPHINE RECIEVED PER FAMILY'S REQUEST. STATES THEY ARE READY FOR EXTUBATION IN 30 MINUTES.
--- NOTE | 2021-02-05 15:00 | NUR ---
FAMILY WAS ASKED TO STEP OUT OF THE ROOM, ALL MEDICATIONS REMOVED AND LINES FLUSHED. REMOVED FROM VENTILLATOR AND PLACED ON TRACH COLLAR. FAMILY BROUGHT BACK IN. 1505- BRADYCARDIA 45 1509- ASYSTOLE ON THE MONITOR. DR. DAS CONTACTED TO PRONOUNCE PT. 1516- DR. DAS PRONOUNCED PT
--- NOTE | 2021-02-05 16:31 | NUR ---
PT LEFT WITH THE HOME. NO BELONGINGS FOUND IN THE ROOM.
== END 2021-02-05 16:33 | DRG 4 ==
LOC: D.ER 14:51 → D.ICU 19:19 → D.EDHOLD 19:19 → D.M2 19:19 → D.ICU 01-12 00:34
PROVIDERS: Family Medicine; Internal Medicine; Internal Medicine Hematology & Oncology; Internal Medicine Nephrology; Internal Medicine Pulmonary Disease; Surgery; ADMIT Emergency Medicine; ATTEND Emergency Medicine
PROC: XW033E5 Introduction of Remdesivir Anti-infective into Peripheral Vein, Percutaneous Approach, New Technology Group 5 (ICD-10-PCS; 2021-01-08)
PROC: XW13325 Transfusion of Convalescent Plasma (Nonautologous) into Peripheral Vein, Percutaneous Approach, New Technology Group 5 (ICD-10-PCS; 2021-01-09)
PROC: 05HM33Z Insertion of Infusion Device into Right Internal Jugular Vein, Percutaneous Approach (ICD-10-PCS; 2021-01-20)
PROC: B543ZZA Ultrasonography of Right Jugular Veins, Guidance (ICD-10-PCS; 2021-01-20)
PROC: 5A1955Z Respiratory Ventilation, Greater than 96 Consecutive Hours (ICD-10-PCS; 2021-01-21)
PROC: 0BH17EZ Insertion of Endotracheal Airway into Trachea, Via Natural or Artificial Opening (ICD-10-PCS; 2021-01-21)
PROC: 05HN33Z Insertion of Infusion Device into Left Internal Jugular Vein, Percutaneous Approach (ICD-10-PCS; 2021-01-26)
PROC: B544ZZA Ultrasonography of Left Jugular Veins, Guidance (ICD-10-PCS; 2021-01-26)
PROC: 05H633Z Insertion of Infusion Device into Left Subclavian Vein, Percutaneous Approach (ICD-10-PCS; 2021-01-31)
PROC: B547ZZA Ultrasonography of Left Subclavian Vein, Guidance (ICD-10-PCS; 2021-01-31)
PROC: 0B110F4 Bypass Trachea to Cutaneous with Tracheostomy Device, Open Approach (ICD-10-PCS; principal; 2021-01-31 09:30)
DX: U07.1 COVID-19 (principal); J12.82 Pneumonia due to coronavirus disease 2019; J96.01 Acute respiratory failure with hypoxia; D65 Disseminated intravascular coagulation [defibrination syndrome]; N17.0 Acute kidney failure with tubular necrosis; A41.9 Sepsis, unspecified organism; R65.21 Severe sepsis with septic shock; C91.11 Chronic lymphocytic leukemia of B-cell type in remission; E87.1 Hypo-osmolality and hyponatremia; E78.5 Hyperlipidemia, unspecified; Z86.718 Personal history of other venous thrombosis and embolism; Z79.01 Long term (current) use of anticoagulants; I10 Essential (primary) hypertension; G47.33 Obstructive sleep apnea (adult) (pediatric); T45.515A Adverse effect of anticoagulants, initial encounter; E11.65 Type 2 diabetes mellitus with hyperglycemia; E11.621 Type 2 diabetes mellitus with foot ulcer; L97.511 Non-pressure chronic ulcer of other part of right foot limited to breakdown of skin; L97.521 Non-pressure chronic ulcer of other part of left foot limited to breakdown of skin